=== PATIENT | male | born 1965 | race Caucasian/White ===

== ENCOUNTER → 2024-03-22 | Outpatient (CLI) | payer BC, SELFPAY ==
[2024-03-22 16:22] LABS: Collection Type, Urine Clean Catch; Squamous Epithelial Cell,Urine 0 /hpf (0-5)
[2024-03-22 17:32] LABS: Basophils % (Auto) 0 % (0-2.5); Eosinophils % (Auto) 0 % (0-10); Hematocrit 30.8 % (41.0-53.0); Hemoglobin 10.4 g/dL (13.5-16.0); Immature Granulocytes % (Auto) 0 % (0-0); Immature Granulocytes Auto 0.02 Thou/mm3 (0.00-0.00); Lymphocytes # (Auto) 0.6 Thou/mm3 (1.0-4.8); Lymphocytes % (Auto) 9 % (10-50); Mean Corpuscular HGB Conc 33.8 g/dl (31.0-37.0); Mean Corpuscular Hemoglobin 33.2 pg (25.0-35.0); Mean Corpuscular Volume 98 fL (80-100); Monocytes # (Auto) 0.1 Thou/mm3 (0.0-0.8); Monocytes % (Auto) 2 % (0-12); Neutrophils # (Auto) 5.6 Thou/mm3 (1.8-7.7); Neutrophils % (Auto) 89 % (37-80); Nucleated Red Blood Cell % 0 /100 WBC (0); Platelet Count 274 Thou/mm3 (140-440); RDW Standard Deviation 44.7 fL (35.1-43.9); Red Blood Count 3.13 Miln/mm3 (4.50-5.90); White Blood Count 6.4 Thou/mm3 (3.8-10.6)
[2024-03-22 17:37] LABS: Bilirubin,Urine Negative (Negative); Blood,Urine Negative (Negative); Clarity,Urine Clear (Clear/Hazy); Color,Urine Yellow (Lt Yel-Yel); Glucose, Urine Negative (Negative); Ketones,Urine Negative (Negative); Leukocyte Esterase,Urine Negative (Negative); Nitrite,Urine Negative (Negative); Protein,Urine 1+ (Neg - Trace); RBC,Urine 2 /hpf (0-3); Specific Gravity,Urine 1.014 (1.001-1.035); Urobilinogen,Urine Negative mg/dL (0.0-1.0); WBC,Urine < 1 /hpf (0-5)
[2024-03-22 17:51] LABS: Alanine Aminotransferase 21 U/L (10-49); Albumin, Serum 4.6 gm/dL (3.4-4.8); Albumin/Globulin Ratio 2.2 (1.2-2.2); Alkaline Phosphatase 70 U/L (46-116); Anion Gap 8 (7-16); Aspartate Amino Transferase 12 U/L (0-34); BUN/Creatinine Ratio 12 Ratio (12-20); Bilirubin,Total 0.9 mg/dL (0.3-1.2); Blood Urea Nitrogen 14 mg/dL (9-23); Calcium 8.9 mg/dL (8.3-10.6); Calcium (Corrected) 8.9 mg/dL (8.5-10.1); Carbon Dioxide 23.1 mMol/L (20.0-31.0); Chloride 100 mMol/L (98-107); Creatinine (Component) 1.2 mg/dL (0.6-1.3); Globulin 2.1 gm/dL (2.3-3.5); Glucose 138 mg/dL (74-106); Osmolality,Calculated 265 (275-295); Potassium 4.9 mMol/L (3.4-5.1); Sodium 131 mMol/L (136-145); Total Protein 6.7 gm/dL (5.7-8.2); eGFR > 60 See Note
[2024-03-23 16:31] LABS: Cocci Serology, IgM Negative (Negative)
[2024-03-25 14:20] LABS: Cocci Serology, IgG Negative (Negative)
== END | disposition home or self-care (01) ==
LOC: COPL 15:48
PROVIDERS: PCP Nurse Practitioner Family; Referring Provider Nurse Practitioner Family; Visit Provider Nurse Practitioner Family
DX: Z00.00 Encounter for general adult medical examination without abnormal findings (principal); R05.9 Cough, unspecified; J18.9 Pneumonia, unspecified organism; Z13.0 Encounter for screening for diseases of the blood and blood-forming organs and certain disorders involving the immune mechanism
CPT/HCPCS: 36415; 80053; 81001; 85025; 86331; 86635; 87086

== ENCOUNTER 2024-03-23 18:34 | Inpatient (IN) | payer BC, SELFPAY ==
[2024-03-23 18:35] VITALS: BMI 27.4
--- NOTE | 2024-03-23 18:49 | EKG_ITS ---
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
[2024-03-23 18:54] VITALS: BP 172/68; PULSE 96; RESP 18; TEMP 37.1; O2SAT 91
--- NOTE | 2024-03-23 19:16 | XR_ITS ---
Examination: PA lateral chest 2 views Technique: Upright PA lateral chest 2 views Exam date and time: March 15, 2024 1924 hrs. Indications: Coughing shortness of breath beginning 3 weeks ago. Findings: Pneumonia in the right middle lobe and lingular segment left upper lobe on the lateral view Mild prominence of ventricle No pulmonary edema Mild osteopenia Impression: Pneumonia in the right middle lobe lingular segment left upper lobe
--- NOTE | 2024-03-23 19:18 | EDRME_ITS ---
Rapid Medical Screening Exam FORMERLY [facility], [facility] Arrival date/time: 03/23/24 18:34 59M with history of DM, hypothyroidism, HTN and anxiety presents to ED with several weeks worsening cough, wheezing, and SOB requiring home oxygen, which patient has never required before. Patient denies smoking history. Patient recently finished a course of Levofloxacin w/o relief. Patient had recent labs drawn here with negative Cocci IgM. Chief Complaint: Shortness of Breath/Dyspnea Vital signs: Vital Signs Temperature 98.7 F 03/23/24 18:54 Pulse Rate 96 03/23/24 18:54 Respiratory Rate 18 03/23/24 18:54 Blood Pressure 172/68 H 03/23/24 18:54 Pulse Oximetry (%) 91 L 03/23/24 18:54 Oxygen Delivery Method Nasal Cannula 03/23/24 18:54 Oxygen Flow Rate 3 03/23/24 18:54
[2024-03-23 19:47] VITALS: BP 176/74; RESP 23; O2SAT 90
[2024-03-23 19:50] VITALS: BP 176/74; PULSE 97; RESP 15; TEMP 36.8; O2SAT 91
[2024-03-23 19:50] LABS: Lactate (Lactic Acid) 3.5 mMol/L (0.4-2.0)
--- NOTE | 2024-03-23 19:50 | EDNOTE_ITS ---
ED SOB =RME/HPI General Chief Complaint: Shortness of Breath/Dyspnea Stated Complaint: PNUEMONIA x 2 DAYS, DIFF BREATHING x 7 DAYS Arrival date/time: 03/23/24 18:34 RME / HPI RME / HPI Narrative: 03/23/24 18:34 59M with history of DM, hypothyroidism, HTN and anxiety presents to ED with several weeks worsening cough, wheezing, and SOB requiring home oxygen, which patient has never required before. Patient denies smoking history. Patient recently finished a course of Levofloxacin w/o relief. Patient had recent labs drawn here with negative Cocci IgM. -------- Dr. Mixon?s Main ED Evaluation: 59yo male with pmhx DMI, HTN accompanied by his presents to the ED for a chief complaint of shortness of breath. states the patient has been well for the last 3 weeks after having pneumonia 1 month ago. She states over the last few days, the patient has developed a cough, reporting he coughs so hard he gets short of breath and almost passes out. Patient denies any tobacco use, but does smoke marijuana occasionally. Patient denies any history of COPD or asthma. Denies any fever, chills or any other associated symptoms. No known allergies. Related Data Home Medications ?Medication ?Instructions ?Recorded ?Confirmed insulin lispro 100 unit/mL 64 unit subcut 2XD ##0 08/25/15 subcutaneous cartridge (Humalog U-100 Insulin) lisinopril 20 mg tablet 20 mg PO QDAY #0 tabs 08/25/15 05/16/23 lovastatin 40 mg tablet 40 mg PO HS #0 tabs 08/25/15 05/16/23 amlodipine 5 mg tablet 5 mg PO QDAY 05/16/23 05/16/23 aripiprazole 5 mg tablet 5 mg PO QDAY 05/16/23 05/16/23 buspirone 15 mg tablet 15 mg PO QDAY 05/16/23 05/16/23 cetirizine 10 mg tablet 10 mg PO QDAY 05/16/23 05/16/23 dapsone 25 mg tablet 25 mg PO QDAY 05/16/23 05/16/23 escitalopram oxalate 10 mg tablet 10 mg PO QDAY 05/16/23 05/16/23 insulin aspart U-100 100 unit/mL subcut 05/16/23 (3 mL) subcutaneous pen (Novolog FlexPen U-100 Insulin aspart) levothyroxine 100 mcg tablet 100 mcg PO QDAY 05/16/23 05/16/23 Allergies Allergy/AdvReac Type Severity Reaction Status Date / Time No Known Allergies Allergy Verified 03/23/24 18:36 Review of Systems Review of Systems Systems Reviewed: All systems reviewed, normal except as documented Narrative Review of Systems: Gen: No fever, no chills, no weight loss EYES: No discharge, no visual changes, no pain HEENT: No ear pain, no congestion, no sore throat PULM: + shortness of breath, + cough, no congestion CV: No chest pain, no dyspnea on exertion, no palpitations GI: No nausea, no vomiting, no diarrhea, no pain, no constipation : No frequency, no urgency, no dysuria Musc/skel: No joint pain, no back pain Skin: No rash. Warm and dry. Psyc: No hallucinations, no depression Heme/Lymph: No easy bleeding or bruising tendencies Neuro: No weakness, no headache Past Medical History Past Medical History NEUROLOGIC: Negative Neurological Disorders or Seizures CARDIAC: Positive Cardiac Disorders, Hypercholesterolemia and Hypertension; Negative Congestive Heart Failure RESPIRATORY: Negative Chronic Obstructive Pulmonary Disease (COPD) GASTROINTESTINAL: Negative Gastrointestinal Disorders GENITOURINARY: Negative Genitourinary Disorders or Renal Disease MUSCULOSKELETAL: Negative Musculoskeletal Disorders ENT: Positive Blind (legally blind) ENDOCRINE: Positive Endocrine Disorders and Diabetes Mellitus Type 1; Negative Diabetes Mellitus Type 2 HEMATOLOGIC: Negative Blood Disorders PSYCHO/SOCIAL: Positive Depression, Anxiety and Post Traumatic Stress Disorder OTHER HISTORY: Negative Hospitalization, Falls, Blood Transfusions, Anesthesia Reactions (woke up during hands sx) or Cancer Surgical History SURGICAL: Positive Neurologic Surgery (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 HEENT: Normocephalic, atraumatic; pupils equal, round, reactive to light; EOMI; mucous membranes pink, moist; oropharynx clear NECK: Supple LUNGS: tachypneic, diffuse generalized significant wheezes throughout, coarse breath sounds in all lungs otriz, no rales, no rhonchi HEART: Tachycardic in the 110s, regular rhythm; normal S1, S2; no murmurs ABDOMEN: non distended; normal BS; soft, no tenderness, no guarding, no rebound; no masses, no organomegaly, no hernia BACK: no CVA tenderness EXTREMITIES: atraumatic; no edema NEUROLOGIC: awake; alert and oriented x4; cranial nerves II-XII grossly intact; no focal sensory or motor deficits PSYCHIATRIC: appropriate mood and affect SKIN: warm, dry, normal color; no rashes Course Course Course Narrative: CXR is ordered for determining the etiology of shortness of breath. 2001: Sepsis alert initiated. Orders made at this time are congruent with ED Adult Sepsis Order List. Re-evaluation is to be completed. 2140: NS IVF infused. 2210: Sepsis reassessment performed consisting of lab review, vitals, physical exam including auscultation of heart, lungs, and visual evaluation of capillary refills, mucosal membranes and extremities. Quality Measures Possible source: unknown Blood cultures ordered: yes Antibiotic ordered: Yes Pertinent labs: 03/23/24 19:25 Lactic Acid 3.5 H mMol/L (0.4-2.0) Procalcitonin 0.06 ng/ml (0.0-0.49) sepsis Orders Category Date Time Status Bedside COVID-19 Antigen Test NOW Care 03/23/24 19:24 Active Bedside Influenza A&B Antigen Test NOW Care 03/23/24 19:24 Completed EKG (ED ONLY) *Do not use* NOW Care 03/23/24 18:49 Completed Insert IV NOW Care 03/23/24 19:17 Active EKG (ED Only) Stat Exams 03/23/24 18:49 Draft XR chest 2V Stat Exams 03/23/24 19:16 Completed ABG [Arterial Blood Gas] Routine Lab 03/23/24 20:16 Completed B-Type Natriuretic Peptide Stat Lab 03/23/24 19:25 Completed Blood Culture (Lab) Stat Lab 03/23/24 19:25 Received CBC Stat Lab 03/23/24 19:25 Completed Comprehensive Metabolic Panel Stat Lab 03/23/24 19:25 Completed Lactate (Lactic Acid) Stat Lab 03/23/24 19:25 Results Magnesium Stat Lab 03/23/24 19:25 Completed Procalcitonin Stat Lab 03/23/24 19:25 Completed Troponin I Stat Lab 03/23/24 19:25 Completed UA, C/S IF [Urinalysis, C/S if Indicated] Stat Lab 03/23/24 21:55 Ordered Azithromycin Inj [Zithromax Inj] 500 mg Med 03/23/24 20:05 Discontinued Sodium Chloride 0.9% 250 ml [Ns] 250 ml IV X1 Budesonide Rt [Pulmicort Rt Anabel] Med 03/23/24 19:15 Discontinued 0.5 mg INH X1 ONE Ipratropium [place] Rt Anabel [Atrovent Rt Anabel] Med 03/23/24 19:15 Discontinued 1 mg INH X1 ONE Levalbuterol Rt [Xopenex Rt Anabel] Med 03/23/24 19:15 Discontinued 5 mg INH X1 ONE MethylPREDNISolone.* [SoluMEDROL Inj] Med 03/23/24 19:15 Discontinued 125 mg IVP X1 ONE MethylPREDNISolone.* [SoluMEDROL Inj] Med 03/23/24 20:08 Discontinued 125 mg IVP X1 ONE Sodium Chloride 0.9% 1000 ml [Ns] 1,000 ml Med 03/23/24 20:04 Discontinued IV 999 mls/hr Sodium Chloride Rt Anabel 0.9% [NS Rt Anabel 0.9%] Med 03/23/24 19:15 Active 3 ml INH PRN PRN cefTRIAXone/D5w 1gm IV premix [Rocephin/D5w 1gm IV Med 03/23/24 20:05 Discontinued premix] 50 ml IV X1 Oxygen Delivery NOW RT 03/23/24 19:17 Active Vital Signs Vital signs: Vital Signs Temperature 98.7 F 03/23/24 18:54 Pulse Rate 96 03/23/24 18:54 Respiratory Rate 18 03/23/24 18:54 Blood Pressure 172/68 H 03/23/24 18:54 Pulse Oximetry (%) 91 L 03/23/24 18:54 Oxygen Delivery Method Nasal Cannula 03/23/24 18:54 Oxygen Flow Rate 3 03/23/24 18:54 Shortness of Breath / Dyspnea MDM Narrative MDM Narrative:: Scribe Attestation: 03/23/24 - Nori Manzano am scribing for and in the presence of Dr. Mixon. Patient data External records reviewed:: [facility] previous records (Per chart review, patient was seen here on 12/26/20 for dehydration.) Clinical information provided by:: patient Social determinants that could affect healthcare access:: substance use (smokes marijuana) Patient has the following chronic illnesses:: HTN, HLD How is presenting disease/condition affected by chronic disease/condition?: uneffected by Evaluation data The following diagnostics were reviewed and interpreted by me:: lab results, radiology exam(s) and EKG tracing(s) Lab and/or radiology exams considered but not ordered:: none Interpretation Summary: WBC count is normal, Lactic Acid is elevated at 3.5, Sodium is slightly low at 132, Potassium is elevated at 5.7, Glucose is elevated at 426, troponin is normal, BNP is normal, Procalcitonin is normal, Bedside COVID and Influenza are negative, according to my interpretation. EKG ----- [facility] Report Signed Patient: KATALINA PHILLIP. Record#: [id number] Birthdate: 1965 Age/Sex: 59 / M Location: [facility] Attending Dr: Ordering Physician: Giovany Crespo PA-C Date of Service: 03/23/24 Procedure(s): XR chest 2V Accession Number(s): [id number] cc: Tony Mejia MD; Jorge Luis Mortensen MD; Giovany Crespo PA-C~ Examination: PA lateral chest 2 views Technique: Upright PA lateral chest 2 views Exam date and time: March 15, 2024 1924 hrs. Indications: Coughing shortness of breath beginning 3 weeks ago. Findings: Pneumonia in the right middle lobe and lingular segment left upper lobe on the lateral view Mild prominence of ventricle No pulmonary edema Mild osteopenia Impression: Pneumonia in the right middle lobe lingular segment left upper lobe Dictated By: Tony Mejia MD Signed By: <Electronically signed by Tony Mejia MD in OV> 03/23/242038 Medications / Prescriptions Medications or Prescriptions considered but not ordered:: none Medication administrations:: Medication Administration History Sodium Chloride (Sodium Chloride Rt Anabel 0.9% 3 Ml Nebu) 3 ml INH PRN PRN PRN Reason: SOLN Stop: 04/22/24 19:14 Discontinued Medications Budesonide (Budesonide Rt 0.5 Mg/2 Ml Nebu) 0.5 mg INH X1 ONE Stop: 03/23/24 19:16 Last Admin: 03/23/24 20:00 Dose: 0.5 mg Documented By: SC Sodium Chloride (Ns) 1,000 mls @ 999 mls/hr IV .Q1H1M ONE Stop: 03/23/24 21:04 Last Infusion: 03/23/24 21:41 Dose: Infused Documented By: Admin: 03/23/24 20:18 Dose: 999 mls/hr Documented By: SF Ceftriaxone Sodium/Dextrose (Rocephin/D5w 1gm Iv Premix) 50 mls @ 100 mls/hr IV X1 ONE Stop: 03/23/24 20:34 Last Infusion: 03/23/24 21:41 Dose: Infused Documented By: Admin: 03/23/24 20:22 Dose: 100 mls/hr Documented By: SF Azithromycin 500 mg/ Sodium (Chloride) 250 mls @ 250 mls/hr IV X1 ONE Stop: 03/23/24 21:04 Last Admin: 03/23/24 20:33 Dose: 250 mls/hr Documented By: SF Ipratropium D[place]anelle (Ipratropium Rt 0.5 Mg/ 2.5 Ml Nebu) 1 mg INH X1 ONE Stop: 03/23/24 19:16 Last Admin: 03/23/24 20:00 Dose: 1 mg Documented By: SC Levalbuterol HCl (Levalbuterol Rt 1.25 Mg/0.5 Ml Nebu) 5 mg INH X1 ONE Stop: 03/23/24 19:16 Last Admin: 03/23/24 20:00 Dose: 5 mg Documented By: SC Methylprednisolone Sodium Succinate (Methylprednisolone Sod Succ 62.5 Mg/Ml 2ml Vial) 125 mg IVP X1 ONE Stop: 03/23/24 19:16 Last Admin: 03/23/24 19:56 Dose: 125 mg Documented By: CB Methylprednisolone Sodium Succinate (Methylprednisolone Sod Succ 62.5 Mg/Ml 2ml Vial) 125 mg IVP X1 ONE Stop: 03/23/24 20:09 Last Admin: 03/23/24 20:22 Dose: 125 mg Documented By: SF see above Consultations Consultation(s) initiated? (list below): Yes Consultation #1 (Physician, Specialty, Details): Discussed case with [attending Dr. Zhou] from Hospitalist service regarding admission. Discussed patients ED course, exam findings, labs, and radiology results. The Hospitalist [agrees] to accept the patient for admission. Time: 22:13 Diagnosis Shortness of Breath Differential Diagnosis: congestive heart failure, community acquired pneumonia and pulmonary embolism Most likely diagnosis given after review of the tests above:: see below Admission Indicated Admission indicated?: indicated Admission Request Was there a request for admission?: Yes Admission Attestation Admission request attestation: Discussed case with [] from Hospitalist service regarding admission. Discussed patients ED course, exam findings, labs, and radiology results. The Hospitalist [agrees,declines] to accept the patient for admission. Disposition Plan Disposition Plan: Admit Critical Care Time Critical Care Time Critical Care Time: Yes Total Critical Care Time (min.): 45 Attestation: The high probability of sudden, clinically significant deterioration in the patient?s condition required the highest level of my preparedness to intervene urgently. The services I provided to this patient were to treat and/or prevent clinically significant deterioration. Services included the following: chart data review, reviewing nursing notes and/or old charts, documentation time, seph[employer] product consultant collaboration regarding findings and treatment options, medication orders and management, direct patient care, vital sign assessments and ordering, interpreting and reviewing diagnostic studies and lab tests. Aggregate critical care time includes only time during which I was engaged in work directly related to the patient?s care, as described above, whether at bedside or elsewhere in the Emergency Department. It did not include time spent performing other reported procedures or the services of residents, students, nurses or physician assistants. Discharge Plan Plan Patient Disposition: Admit Acute Care w/in Hospital Prescriptions/Referrals Prescriptions/Med Rec: No Action Humalog U-100 Insulin 100 U/ML cartridge 64 unit subcut 2XD Qty: 0 lisinopril 20 MG tablet 20 mg PO QDAY Qty: 0 lovastatin 40 MG tablet 40 mg PO HS Qty: 0 cetirizine 10 mg Tablet 10 mg PO QDAY amlodipine 5 mg tablet 5 mg PO QDAY levothyroxine 100 mcg tablet 100 mcg PO QDAY Patient Comments: take 1 tablet by mouth once daily dapsone 25 mg tablet 25 mg PO QDAY Patient Comments: take 2 tablets by mouth once daily buspirone 15 mg tablet 15 mg PO QDAY escitalopram oxalate 10 mg tablet 10 mg PO QDAY Patient Comments: take 1 tablet by mouth once daily aripiprazole 5 mg tablet 5 mg PO QDAY insulin aspart U-100 [Novolog FlexPen U-100 Insulin] 100 unit/mL (3 mL) insulin pen SUBCUT Referrals: Festus (PCP),MD Jorge Luis [Primary Care Provider] - In 1 week Problem List Clinical Impression: Pneumonia, Severe sepsis, Hypoxia, Hyperglycemia Patient/Caregiver Discharge Instructions Print Language: Ukrainian Stand Alone Forms: Radha Award Info., Patient Portal Info Letter
[2024-03-23 19:51] LABS: Basophils % (Auto) 0 % (0-2.5); Eosinophils % (Auto) 0 % (0-10); Hemoglobin 10.9 g/dL (13.5-16.0); Immature Granulocytes % (Auto) 1 % (0-0); Immature Granulocytes Auto 0.07 Thou/mm3 (0.00-0.00); Lymphocytes % (Auto) 10 % (10-50); Mean Corpuscular HGB Conc 34.1 g/dl (31.0-37.0); Mean Corpuscular Hemoglobin 33.5 pg (25.0-35.0); Mean Corpuscular Volume 99 fL (80-100); Monocytes # (Auto) 0.7 Thou/mm3 (0.0-0.8); Monocytes % (Auto) 7 % (0-12); Neutrophils # (Auto) 8.6 Thou/mm3 (1.8-7.7); Neutrophils % (Auto) 83 % (37-80); Nucleated Red Blood Cell % 0 /100 WBC (0); Platelet Count 304 Thou/mm3 (140-440); RDW Standard Deviation 45.7 fL (35.1-43.9); Red Blood Count 3.25 Miln/mm3 (4.50-5.90); White Blood Count 10.4 Thou/mm3 (3.8-10.6)
[2024-03-23 19:56] VITALS: PULSE 91; RESP 16; O2SAT 92
[2024-03-23] MEDS: MethylPREDNISolone SOD SUCC 62.5 MG/ML 2ML VIAL 125 MG IVP ×2 (19:56→20:22)
[2024-03-23 20:00] VITALS: PULSE 98; RESP 22; RESP 33; O2SAT 88; O2SAT 99
[2024-03-23] MEDS: LEVALBUTEROL RT 1.25 MG/0.5 ML NEBU 5 MG INH (20:00)
[2024-03-23] MEDS: IPRATROPIUM RT 0.5 MG/ 2.5 ML NEBU 1 MG INH (20:00)
[2024-03-23] MEDS: BUDESONIDE RT 0.5 MG/2 ML NEBU INH (20:00)
[2024-03-23] MEDS: SODIUM CHLORIDE 0.9% 1000 ML 1,000 ML 999 ML IV (20:18)
[2024-03-23 20:19] LABS: B-Type Natriuretic Peptide < 20 pg/mL (0-100)
[2024-03-23 20:20] LABS: Allen Test Performed/OK; Base Excess 1 (-3-3); HCO3 24 mEq/L (20-26); Inspired O2, VO2 Liters 15 L/min; Inspired Oxygen, FIO2 21 %; O2 Saturation 85 % (91-98); PCO2 35 mmHg (32.0-48.0); Puncture Site Right Radial; pH, Arterial 7.45 (7.35-7.45)
[2024-03-23 20:21] LABS: PO2 52 mmHg (83-108)
[2024-03-23] MEDS: cefTRIAXone/D5w 1gm IV premix 50 ML IV (20:22)
[2024-03-23 20:23] LABS: Alanine Aminotransferase 25 U/L (10-49); Albumin, Serum 4.5 gm/dL (3.4-4.8); Alkaline Phosphatase 114 U/L (46-116); Anion Gap 8 (7-16); Aspartate Amino Transferase 31 U/L (0-34); BUN/Creatinine Ratio 15 Ratio (12-20); Bilirubin,Total 0.9 mg/dL (0.3-1.2); Blood Urea Nitrogen 21 mg/dL (9-23); Calcium 9.7 mg/dL (8.3-10.6); Calcium (Corrected) 9.7 mg/dL (8.5-10.1); Carbon Dioxide 25.6 mMol/L (20.0-31.0); Chloride 98 mMol/L (98-107); Creatinine (Component) 1.4 mg/dL (0.6-1.3); Estimated Creatinine Clearance 54.2 mL/min (>60); Globulin 2.2 gm/dL (2.3-3.5); Glucose 426 mg/dL (74-106); Magnesium 2.2 mg/dL (1.6-2.6); Osmolality,Calculated 285 (275-295); Potassium 5.7 mMol/L (3.4-5.1); Sodium 132 mMol/L (136-145); Total Protein 6.7 gm/dL (5.7-8.2); Troponin I < 0.020 ng/mL (0.0-0.045); eGFR 57 See Note
[2024-03-23 20:26] LABS: Procalcitonin 0.06 ng/ml (0.0-0.49)
[2024-03-23] MEDS: AZITHROMYCIN INJ 500 MG in SODIUM CHLORIDE 0.9% 250 ML 250 ML 250 MG IV (20:33)
[2024-03-23 22:48] LABS: Reflex Lactate? Y
--- NOTE | 2024-03-23 22:50 | XR_ITS ---
Examination: CTA chest with intravenous contrast 2-D reconstructions 3-D reconstructions, vascular Date and time of exam: March 24, 2024 0432 hrs. Indications: Onset chest pain shortness of breath beginning 7 days ago, history pneumonia in the right middle lobe and lingular segment left upper lobe on chest x-ray March 15, 2024 CTDI: vol (mGy) 9.18 DLP: (mGycm) 370 Technique: Multiple axial sections of the thorax have been obtained. 3 mm slice thickness, from below the hemidiaphragms to above the apices of the lungs. Mediastinal and lung density settings have been obtained. 2-D sagittal and coronal reconstructions. 3-D angiographic renderings, 3-D volume renderings, 3D post processing, vascular maximum intensity projections obtained. Contrast administered is 60 cc Isovue-300 intravenous. Low dose protocols were performed. One or more of the following dose reduction techniques were used; automated exposure control, adjustment of the mA and/or KV according to patient size, use of iterative reconstruction technique. Findings: No thoracic aortic aneurysm dilatation Pulmonary artery segments are not enlarged No pulmonary artery emboli Pulmonary opacities in the right middle lobe lingular segment and both bases consistent with pneumonia No visualized liver or splenic lesion Contracted gallbladder No pancreatic or adrenal mass 1 mm left renal calculus Perinephric stranding Impression: Negative for pulmonary artery emboli Parenchymal opacities in the right middle lobe, lingular segment left upper lobe and both bases consistent with pneumonia
[2024-03-23 22:51] LABS: Collection Type, Urine Clean Catch; Squamous Epithelial Cell,Urine 0 /hpf (0-5)
[2024-03-23 22:56] LABS: Bilirubin,Urine Negative (Negative); Blood,Urine Negative (Negative); Clarity,Urine Clear (Clear/Hazy); Color,Urine Lt-Yellow (Lt Yel-Yel); Culture Indicated,Urine Not Indicated; Glucose, Urine 4+ (Negative); Ketones,Urine Trace (Negative); Leukocyte Esterase,Urine Negative (Negative); Nitrite,Urine Negative (Negative); Protein,Urine Negative (Neg - Trace); RBC,Urine 2 /hpf (0-3); Specific Gravity,Urine 1.021 (1.001-1.035); Urobilinogen,Urine Negative mg/dL (0.0-1.0); WBC,Urine < 1 /hpf (0-5)
--- NOTE | 2024-03-23 23:00 | PD.RESHP ---
Documentation for date of: 03/23/24 [facility] History of Present Illness Chief complaint: Shortness of breath History of present illness: 59-year-old male with past medical history of type 1 diabetes on insulin, hypertension, hyperlipidemia, psychiatric history/BRIGETTE/MDD, presented to the ED on 03/23 with acute shortness of breath along with episode of syncope. History taken with patient's bedside. Per patient, he has been having shortness of breath for the past 9 days and states that his granddaughter who lives with him has been sick with cough/runny nose. Of note, patient had pneumonia 4 weeks ago and was seen by his PCP; chest x-ray was taken at that time and he was discharged with 14-day course of oral antibiotics. Patient states that he recovered for 3 weeks; however, for the past 9 days he has been experiencing worsening shortness of breath and coughing spells. Patient's states that today while having a coughing spell patient developed a couple second syncopal episode where he slouched while sitting on the couch and lost consciousness. Patient denies hitting his head anywhere or having any concerning cardiac symptoms such as chest pain/tightness, palpitations, orthopnea, PND, lower extremity swelling. Patient is seen by Dr. Pena and has had extensive cardiac workup without any pertinent findings. Patient is also interestingly on dapsone 25 mg for an apparent eruptive rash which developed years ago but there was no diagnosis; patient was seen by dermatology who did a punch biopsy with no diagnosis, he was started on dapsone which apparently subsided the rash. Patient denies any travel out of the country, long drives out of town, hiking in the mountains or gardening. 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 Medical history: As stated above Surgical history: Lap roxann, right and left hand surgery Allergies: NKDA Medications: Pending med rec; however patient states that he takes dapsone 25 mg p.o. daily, Abilify 15 mg p.o. daily, escitalopram 20 mg p.o. 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 Pertinent lab findings included fingerstick blood glucose of 423, WBC 10.4, hemoglobin 10.9 with MCV of 99, ABG shows pH 7.45, pCO2 35, pO2 52, bicarb 24, potassium 5.7, creatinine 1.4, BUN 21, glucose 426, lactic acid 3.5, BNP less than 20, troponin less than 0.020. Urinalysis negative for any urinary tract infection. EKG shows sinus rhythm and chest x-ray shows right middle lobe and left lower lobe pneumonia. Patient will be admitted for acute hypoxic respiratory failure secondary to bilateral pneumonia versus possible PE or other infectious cause; will be started on IV antibiotics, breathing treatments and further workup. Exam Vital Signs Temp Pulse Resp BP Pulse Ox O2 Del Method O2 Flow Rate 98.3 F 98 22 H 176/74 H 88 L Nasal Cannula 4 03/23/24 19:50 03/23/24 20:00 03/23/24 20:00 03/23/24 19:50 03/23/24 20:00 03/23/24 19:50 03/23/24 20:00 Narrative Exam Physical Exam: GENERAL: Awake, answering questions appropriately, appears stated age, On 4L NC HEENT: NC/AT. Moist mucosa. PERRLA/EOMI. CARDIO: Heart RRR, no obvious murmurs, no JVD. PULM: Prominent wheezing noted bilaterally upper lung ortiz, no crackles/rales/rhonci noted GI: Abdomen soft, NT/ND, +BS. SKIN/MSK/EXT: No wounds/discoloration/rashes/edema/amputations. +Pedal pulses present B/L. NEURO: Oriented x3, gate operator strength 5/5, cogwheel rigidity noted on upper extremities, Moves extremities x4. Results: Labs 03/23/24 19:25 03/23/24 19:25 Labs: Short CBC 03/23/24 Range/Units 19:25 WBC 10.4 D (3.8-10.6) Thou/mm3 Hgb 10.9 L (13.5-16.0) g/dL Hct 32.0 L (41.0-53.0) % Plt Count 304 D (140-440) Thou/mm3 BMP 03/23/24 19:25 Sodium 132 L Potassium 5.7 H D Chloride 98 Carbon Dioxide 25.6 BUN 21 Creatinine 1.4 H Glucose 426 H* D Calcium 9.7 Cardiac Enzymes 03/23/24 Range/Units 19:25 Troponin I < 0.020 (0.0-0.045) ng/mL Liver Function 03/23/24 Range/Units 19:25 Total Bilirubin 0.9 (0.3-1.2) mg/dL AST 31 (0-34) U/L ALT 25 (10-49) U/L Alkaline Phosphatase 114 D (46-116) U/L Albumin 4.5 (3.4-4.8) gm/dL ABG Interpretation ABG results: 03/23/24 20:16 ABG pH 7.45 ABG pCO2 35 ABG pO2 52 L* ABG HCO3 24 ABG O2 Saturation 85 L ABG Base Excess 1 Quality Measures Quality Measures sepsis Current suspected stage: ruled out Possible source: unknown Blood cultures ordered: yes Antibiotic ordered: Yes Medications Home Medications and Allergies Home Medications ?Medication ?Instructions ?Recorded ?Confirmed ?Type insulin lispro 100 unit/mL 64 unit subcut 2XD ##0 08/25/15 History subcutaneous cartridge (Humalog U-100 Insulin) lisinopril 20 mg tablet 20 mg PO QDAY #0 tabs 08/25/15 05/16/23 History lovastatin 40 mg tablet 40 mg PO HS #0 tabs 08/25/15 05/16/23 History amlodipine 5 mg tablet 5 mg PO QDAY 05/16/23 05/16/23 History aripiprazole 5 mg tablet 5 mg PO QDAY 05/16/23 05/16/23 History buspirone 15 mg tablet 15 mg PO QDAY 05/16/23 05/16/23 History cetirizine 10 mg tablet 10 mg PO QDAY 05/16/23 05/16/23 History dapsone 25 mg tablet 25 mg PO QDAY 05/16/23 05/16/23 History escitalopram oxalate 10 mg tablet 10 mg PO QDAY 05/16/23 05/16/23 History insulin aspart U-100 100 unit/mL subcut 05/16/23 History (3 mL) subcutaneous pen (Novolog FlexPen U-100 Insulin aspart) levothyroxine 100 mcg tablet 100 mcg PO QDAY 05/16/23 05/16/23 History Allergies Allergy/AdvReac Type Severity Reaction Status Date / Time No Known Allergies Allergy Verified 03/23/24 18:36 Visit Medications Acetaminophen (Acetaminophen 325 Mg Tablet) 650 mg PO Q6H PRN PRN Reason: Pain 1-3 and/or Fever >100.1 Stop: 04/22/24 22:49 Azithromycin (Azithromycin 250 Mg Tablet) 250 mg PO QDAY [facility] Stop: 03/28/24 08:59 Dextrose (Dextrose 50%-Water Inj 50 Ml Syringe) 25 ml IV Q15MIN PRN PRN Reason: BG 50-70 responsive npo pt Stop: 04/22/24 22:53 Dextrose (Dextrose 50%-Water Inj 50 Ml Syringe) 50 ml IV Q15MIN PRN PRN Reason: BG <50 OR BG <70 & pt unresponsive Stop: 04/22/24 22:53 Glucagon (Glucagon Inj 1 Mg Vial) 1 mg IM Q15MIN PRN PRN Reason: BG <70, and no IV access Heparin Sodium (Porcine) (Heparin Sod Inj 5000 Unit/Ml Vial) 5,000 unit SC Q12HR [facility] Stop: 04/07/24 08:59 Ceftriaxone Sodium/Dextrose (Rocephin/D5w 1gm Iv Premix) 50 mls @ 100 mls/hr IV QDAY [facility] Stop: 03/31/24 08:59 Insulin Human Lispro (Insulin Lispro (Admelog) 1 Unit/0.01 Ml Unit) 0 unit SC [facility]; Protocol Stop: 04/23/24 07:29 Levalbuterol HCl (Levalbuterol Rt 0.63 Mg/3 Ml Nebu) 0.63 mg INH Q8HR PRN PRN Reason: WHEEZING Stop: 04/22/24 22:54 Ondansetron HCl (Ondansetron Inj 2 Mg/Ml Inj 2 Ml) 4 mg IV Q6H PRN; Protocol PRN Reason: NAUSEA OR VOMITING Stop: 04/22/24 22:49 Sennosides (Senna Tablet) 1 tab PO QDAY [facility]; Protocol Stop: 04/23/24 08:59 Sodium Chloride (Sodium Chloride Rt Anabel 0.9% 3 Ml Nebu) 3 ml INH PRN PRN PRN Reason: SOLN Stop: 04/22/24 19:14 Discontinued Medications Budesonide (Budesonide Rt 0.5 Mg/2 Ml Nebu) 0.5 mg INH X1 ONE Stop: 03/23/24 19:16 Last Admin: 03/23/24 20:00 Dose: 0.5 mg Sodium Chloride (Ns) 1,000 mls @ 999 mls/hr IV .Q1H1M ONE Stop: 03/23/24 21:04 Last Infusion: 03/23/24 21:41 Dose: Infused Ceftriaxone Sodium/Dextrose (Rocephin/D5w 1gm Iv Premix) 50 mls @ 100 mls/hr IV X1 ONE Stop: 03/23/24 20:34 Last Infusion: 03/23/24 21:41 Dose: Infused Azithromycin 500 mg/ Sodium (Chloride) 250 mls @ 250 mls/hr IV X1 ONE Stop: 03/23/24 21:04 Last Infusion: 03/23/24 22:22 Dose: Infused Insulin Glargine (Insulin Glargine (Lantus) 5 Unit/0.05 Ml (Per 5 Units)) 20 unit SC X1 ONE Stop: 03/23/24 22:55 Ipratropium [place] (Ipratropium Rt 0.5 Mg/ 2.5 Ml Nebu) 1 mg INH X1 ONE Stop: 03/23/24 19:16 Last Admin: 03/23/24 20:00 Dose: 1 mg Levalbuterol HCl (Levalbuterol Rt 1.25 Mg/0.5 Ml Nebu) 5 mg INH X1 ONE Stop: 03/23/24 19:16 Last Admin: 03/23/24 20:00 Dose: 5 mg Methylprednisolone Sodium Succinate (Methylprednisolone Sod Succ 62.5 Mg/Ml 2ml Vial) 125 mg IVP X1 ONE Stop: 03/23/24 19:16 Last Admin: 03/23/24 19:56 Dose: 125 mg Methylprednisolone Sodium Succinate (Methylprednisolone Sod Succ 62.5 Mg/Ml 2ml Vial) 125 mg IVP X1 ONE Stop: 03/23/24 20:09 Last Admin: 03/23/24 20:22 Dose: 125 mg Sodium Chloride (Sodium Chloride Rt 10% 15 Ml Nebu) 5 ml INH X1 ONE Stop: 03/23/24 22:56 Assessment & Plan Plan 59-year-old male with past medical history of type 1 diabetes on insulin, hypertension, hyperlipidemia, psychiatric history/BRIGETTE/MDD, presented with acute shortness of breath along with episode of syncope after the 500 his blood pressure still 86 oh systolic will be admitted for acute hypoxic respiratory failure secondary to bilateral pneumonia versus possible PE or other infectious cause; will be started on IV antibiotics, breathing treatments and further workup. #Acute hypoxic respiratory failure #Bilateral pneumonia #Possible PE Presenting from home with worsening shortness of breath for the past 9 days; he has a sick contact his grandchild and runny nose/cough Of note, patient was treated for pneumonia about 4 weeks ago with oral antibiotic regimen and apparently was better until 9 days ago Patient also has associated coughing spells which have triggered a syncopal episode which was witnessed by his Patient denies having any fever/chills or any concerning cardiac symptoms such as chest pain/tightness, palpitations In the ED, patient presented acutely hypoxemic requiring 3-4 L of oxygen supplementation with nasal cannula WBC 10.4, lactic acid elevated at 3.2, Pro-[place] 0.06 ABG done showed PaO2 of 52 but a pH of 7.45, pCO2 35 and bicarb of 24 Chest x-ray showed bilateral pneumonia right middle lobe along with left lower lobe Given x 1 azithromycin and ceftriaxone, methylprednisolone x 2 along with breathing treatments in the ED Well score of 4.5: patient denies having any recent surgeries, history of cancer, recent immobilization; however, patient has tachycardia with hypoxemia and chest x-ray is not very conclusive of a pneumonia Plan: CT angio of chest (patient given IV fluid bolus to prevent contrast-induced nephropathy) IV ceftriaxone and azithromycin Breathing treatments, Xopenex every 8 hours for wheezing Sputum culture, blood culture RSV, urine Legionella, cocci ordered #Vasovagal syncope Patient's states that she witnessed the patient having a coughing spell after which he lost consciousness while sitting on the sofa Patient has had a previous episode about 4 years ago with similar shortness of breath/cough which led to syncope Plan: Monitor Consider orthostatic vitals if the patient has any new symptoms of dizziness/presyncope #Insulin-dependent type 1 diabetes mellitus Patient diagnosed with type 1 diabetes since the age of 5, has been on insulin since Patient states that recently her insulin regimen was changed since his A1c has been in the low fives Presented with glucose in the 400s Patient takes 40 units of Lantus at bedtime along with Premeal sliding scale Given IV Lantus 20 x 1 and IV regular insulin 5 x 1 Plan: Sliding scale insulin Carb consistent low diet Bedside blood glucose ACHS #Normocytic anemia Patient has mild normocytic anemia, borderline macrocytic Likely secondary to iron deficiency anemia versus anemia of chronic disease versus B12/B9 deficiency Plan: Follow-up with iron panel, ferritin Follow-up with B12 and RBC folate #LETICIA #Electrolyte abnormalities #Hyperkalemia Patient presenting to the ED with new and worsening LETICIA as seen from increase in creatinine from baseline Patient's baseline creatinine around 1.0, currently 1.4 Patient also has hyperkalemia 5.7 Likely secondary to acutely ill status versus underlying diabetic nephropathy No concerning EKG changes noted Plan: IV fluid resuscitation as above Kayexalate 15 mg x 1 for hyperkalemia along with the breathing treatments outlined above #Hypertension Patient has longstanding hypertension on lisinopril and amlodipine Plan: Held lisinopril since the patient also has LETICIA Amlodipine home dose restarted #Generalized anxiety disorder/Depression Patient has extensive history of psychiatric disorders On home Abilify, escitalopram and BuSpar Plan: Restarted home medications #Hypothyroidism Patient on 100 mcg of levothyroxine for longstanding hypothyroidism Plan: Restarted home medication Hospital Management: Lines: PIV Diet: Carb consistent low Bowel: Senna GI prophylaxis: Not needed DVT prophylaxis: Heparin subcu Dispo: Workup for acute hypoxic respiratory failure secondary to likely bilateral pneumonia, on IV antibiotics and breathing treatments Code: Full Patient seen and assessed with attending Dr. Juanito Gomez, PGY-1 Attending Provider Attestation/Addendum 59-year-old male patient with diabetes mellitus and hypertension was examined in room 278. He presented with possible syncopal episode. He was noted to be hyperkalemic. He is hypoxic in the ER. He CT scan showed pneumonia. CT angio chest was requested by housestaff still pending results. He received antibiotic treatment. He will be admitted for further workup and management. Past medical history is also significant for generalized anxiety disorder, depression, hypothyroidism.
[2024-03-23] MEDS: INSULIN GLARGINE (Lantus) 5 UNIT/0.05 ML (PER 5 UNITS) 20 UNIT SC (23:11)
[2024-03-23] MEDS: SOD POLYSTYRENE SULFON SUSP 15 GM/60 ML BTL PO (23:19)
[2024-03-23 23:25] LABS: Lactic Acid, 3 HR 3.2 mMol/L (0.4-2.0)
[2024-03-23 23:29] VITALS: BP 158/60; PULSE 98; RESP 24; O2SAT 89
[2024-03-24] VITALS (14 sets, daily range): BP systolic 124–148; BP diastolic 59–72; PULSE 80–101; RESP 10–24; TEMP 36.1–36.9; O2SAT 90–96; BMI 27.6
[2024-03-24] MEDS: INSULIN HUM REGULAR 1 UNIT/0.01 ML (PER UNIT) 5 UNIT IV (00:20)
[2024-03-24] MEDS: INSULIN HUM REGULAR 1 UNIT/0.01 ML (PER UNIT) 10 UNIT IV (00:57)
[2024-03-24 00:58] LABS: Respiratory Syncytial Virus Ag Negative (Negative)
[2024-03-24] MEDS: BusPIRone HCL 5 MG TABLET 15 MG PO ×3 (05:13→21:10)
[2024-03-24] MEDS: LEVOTHYROXINE SODIUM 100 MCG TABLET PO (05:13)
[2024-03-24 05:57] LABS: Basophils % (Auto) 0 % (0-2.5); Eosinophils % (Auto) 0 % (0-10); Hematocrit 28.4 % (41.0-53.0); Hemoglobin 9.6 g/dL (13.5-16.0); Immature Granulocytes % (Auto) 1 % (0-0); Immature Granulocytes Auto 0.07 Thou/mm3 (0.00-0.00); Lymphocytes # (Auto) 0.5 Thou/mm3 (1.0-4.8); Lymphocytes % (Auto) 5 % (10-50); Mean Corpuscular HGB Conc 33.8 g/dl (31.0-37.0); Mean Corpuscular Hemoglobin 33.9 pg (25.0-35.0); Mean Corpuscular Volume 100 fL (80-100); Monocytes # (Auto) 0.2 Thou/mm3 (0.0-0.8); Monocytes % (Auto) 2 % (0-12); Neutrophils # (Auto) 8.3 Thou/mm3 (1.8-7.7); Neutrophils % (Auto) 92 % (37-80); Nucleated Red Blood Cell % 0 /100 WBC (0); Platelet Count 285 Thou/mm3 (140-440); RDW Standard Deviation 46.6 fL (35.1-43.9); Red Blood Count 2.83 Miln/mm3 (4.50-5.90)
[2024-03-24 06:06] LABS: Prothrombin Time 11.1 Seconds (9.0-12.2)
[2024-03-24 06:21] LABS: Alanine Aminotransferase 19 U/L (10-49); Albumin, Serum 4.4 gm/dL (3.4-4.8); Albumin/Globulin Ratio 2.2 (1.2-2.2); Alkaline Phosphatase 102 U/L (46-116); Anion Gap 8 (7-16); Aspartate Amino Transferase 18 U/L (0-34); BUN/Creatinine Ratio 18 Ratio (12-20); Bilirubin,Total 0.8 mg/dL (0.3-1.2); Blood Urea Nitrogen 21 mg/dL (9-23); Calcium 8.8 mg/dL (8.3-10.6); Calcium (Corrected) 8.8 mg/dL (8.5-10.1); Carbon Dioxide 23.3 mMol/L (20.0-31.0); Cardiac Risk Estimate 3.3 RATIO (4.0-6.7); Chloride 101 mMol/L (98-107); Cholesterol 100 mg/dL (132-200); Creatinine (Component) 1.2 mg/dL (0.6-1.3); Estimated Creatinine Clearance 63.4 mL/min (>60); Glucose 354 mg/dL (74-106); HDL Cholesterol 30 mg/dL (40-60); LDL Cholesterol,Calculated 59 mg/dL (0-130); Magnesium 2.1 mg/dL (1.6-2.6); Osmolality,Calculated 281 (275-295); Phosphorous 3.9 mg/dL (2.4-5.1); Potassium 4.5 mMol/L (3.4-5.1); Sodium 132 mMol/L (136-145); Thyroid Stimulating Hormone 1.09 uIU/mL (0.55-4.78); Total Protein 6.4 gm/dL (5.7-8.2); Triglycerides 55 mg/dL (30-150); eGFR > 60 See Note
--- NOTE | 2024-03-24 06:22 | PRELIM_ITS ---
CT angiogram of the chest with intravenous contrast (axial sections with sagittal and coronal reforma ts). March 24, 2024 at 0432 hoursClinical History: Acute respiratory distress w/tachycardia.Techni que:Helical axial sections with sagittal and coronal reformats of the chest were obtained with intrav enous contrast. Iterative reconstruction technique was employed to reduce patient radiation exposure. 3D/MIP reconstructed images were also provided. Comparison: No prior study is available for comparis on. Findings:There is no filling defect within the pulmonary artery divisions to suggest pulmonary th romboembolism. The mediastinum demonstrates no evidence of mass or lymphadenopathy. The thoracic aort a is unremarkable. There is no pericardial effusion. Coronary artery calcification is noted. Atelecta sis and ground-glass opacities in bilateral lower and right middle lobes. No evidence of pleural effu sonia or pneumothorax.The bones are osteopenic. Degenerative changes are identified in the spine. The visualized upper abdominal viscera are unremarkable.Impression:1. No CT evidence of pulmonary thrombo embolism.2. Atelectasis and ground-glass opacities in bilateral lower and right middle lobes.3. Other findings as described above. Report Electronically Signed By: Dory Turner 03/24/2024 6:21:16 AM [EST ]
[2024-03-24 06:33] LABS: Ferritin 162 ng/mL (10.5-307.3); Total Iron Binding Capacity 298 mcg/dL (250-425)
[2024-03-24 06:43] LABS: Iron 44 mcg/dL (65-175); Percent Iron Saturation 14 % (20-55); Unsaturated Iron Binding 254 (225-295)
[2024-03-24] MEDS: LEVALBUTEROL RT 0.63 MG/3 ML NEBU INH (07:23)
[2024-03-24] MEDS: INSULIN LISPRO (AdmeLOG) 1 UNIT/0.01 ML UNIT SC ×4 (07:30→21:08)
[2024-03-24 08:50] LABS: Lactate (Lactic Acid) 3.9 mMol/L (0.4-2.0)
[2024-03-24] MEDS: HEPARIN SOD INJ 5000 UNIT/ML VIAL SC ×2 (09:25→21:10)
[2024-03-24] MEDS: ESCITALOPRAM OXALATE 10 MG TABLET 20 MG PO (09:25)
[2024-03-24] MEDS: ARIPiprazole 5 MG TABLET 15 MG PO (09:25)
[2024-03-24] MEDS: Lisinopril 2.5 MG TABLET 5 MG PO (09:25)
[2024-03-24] MEDS: ALBUTEROL/IPRATROPIUM (Duoneb) RT SOL 3 ML NEBU INH ×4 (09:59→23:30)
[2024-03-24] MEDS: SENNA TABLET 1 TAB PO (10:19)
[2024-03-24] MEDS: SODIUM CHLORIDE 0.9% 500 ML 500 ML 999 ML IV (10:26)
--- NOTE | 2024-03-24 11:42 | PD.RESPRO ---
Documentation for date of: 03/24/24 Subjective Subjective Interval history: No acute overnight events. Continued on 12 L oxy mask. Endorsing mild SOB, productive cough and wheezing. Denies fever, chills, headaches, chest pain, GI or urinary symptoms. Exam Vital Signs Temp Pulse Resp BP Pulse Ox O2 Del Method O2 Flow Rate 97.2 F 89 14 139/60 H 92 L Oxy Mask 10 03/24/24 08:00 03/24/24 10:00 03/24/24 10:00 03/24/24 09:25 03/24/24 10:00 03/24/24 08:00 03/24/24 10:00 Narrative Exam GENERAL: Normal appearing middle-aged male, no apparent distress, on OxyMask 12 L HEENT: NCAT.?CABRERA. Oral mucosa is moist. Patent Nares NECK: Supple, nontender, no thyromegaly, no meningismus, no JVD, no step offs CARDIOVASCULAR: RRR, no m/g/r LUNGS: Diffuse wheezing on exam, no rales or rhonchi. Symmetrical chest rise. ABDOMEN: Soft, flat, nontender. No guarding/rebound tenderness/masses. +BS EXTREMITIES: Nontender.? No edema/cyanosis.?Moves all 4 extremities well, with full ROM and good CSM. SKIN: Warm and dry, no jaundice/rashes. MSK: No lumbar or midline, no CVA, no paraspinal muscle spasm or tenderness. NEURO: Cogwheel rigidity of bilateral upper extremity noted. No other focal neurologic deficits. PSYCHIATRIC: Normal mood and affect, cooperative, no SI or HI or hallucinations. Objective Labs 03/24/24 05:33 03/24/24 05:33 Labs: Laboratory Results - last 24 hr 03/23/24 03/23/24 03/23/24 19:25 20:16 22:40 WBC 10.4 D RBC 3.25 L Hgb 10.9 L Hct 32.0 L MCV 99 MCH 33.5 MCHC 34.1 RDW Std Deviation 45.7 H Plt Count 304 D Neut % (Auto) 83 H Lymph % (Auto) 10 [place] % (Auto) 7 Eos % (Auto) 0 Baso % (Auto) 0 Neut # (Auto) 8.6 H Lymph # (Auto) 1.0 [place] # (Auto) 0.7 Eos # (Auto) 0.0 Baso # (Auto) 0.0 Immature Gran # (Auto) 0.07 H Absolute Nucleated RBC 0.00 Immature Gran % 1 H Nucleated RBC % 0 PT INR Puncture Site Right Radial ABG pH 7.45 ABG pCO2 35 ABG pO2 52 L* ABG HCO3 24 ABG O2 Saturation 85 L ABG Base Excess 1 Oxygen Liter Flow 15 FiO2 21 Sodium 132 L Potassium 5.7 H D Chloride 98 Carbon Dioxide 25.6 Anion Gap 8 BUN 21 Creatinine 1.4 H Estim Creat Clear Calc 54.2 L eGFR 57 L BUN/Creatinine Ratio 15 Glucose 426 H* D Calculated Osmolality 285 Lactic Acid 3.5 H Calcium 9.7 Corrected Calcium 9.7 Phosphorus Magnesium 2.2 Iron TIBC Iron Saturation Unsat Iron Binding Ferritin Total Bilirubin 0.9 AST 31 ALT 25 Alkaline Phosphatase 114 D Troponin I < 0.020 B-Natriuretic Peptide < 20 Total Protein 6.7 Albumin 4.5 Globulin 2.2 L Albumin/Globulin Ratio 2.0 Triglycerides Cholesterol LDL Cholesterol, Calc HDL Cholesterol Cholesterol/HDL Ratio Procalcitonin 0.06 TSH Ur Collection Type Clean Catch Urine Color Lt-Yellow Urine Clarity Clear Urine pH 7.0 Ur Specific [place] 1.021 Urine Protein Negative Urine Glucose (UA) 4+ A Urine Ketones Trace Urine Blood Negative Urine Nitrite Negative Urine Bilirubin Negative Urine Urobilinogen (Auto) Negative Ur Leukocyte Esterase Negative Urine RBC 2 Urine WBC < 1 Ur Squamous Epith Cells 0 Urine Bacteria None Ur Culture Indicated? Not Indicated RSV Rapid 03/23/24 03/23/24 03/24/24 23:11 23:52 05:33 WBC 9.0 RBC 2.83 L Hgb 9.6 L Hct 28.4 L MCV 100 MCH 33.9 MCHC 33.8 RDW Std Deviation 46.6 H Plt Count 285 Neut % (Auto) 92 H Lymph % (Auto) 5 L [place] % (Auto) 2 Eos % (Auto) 0 Baso % (Auto) 0 Neut # (Auto) 8.3 H Lymph # (Auto) 0.5 L [place] # (Auto) 0.2 Eos # (Auto) 0.0 Baso # (Auto) 0.0 Immature Gran # (Auto) 0.07 H Absolute Nucleated RBC 0.00 Immature Gran % 1 H Nucleated RBC % 0 PT 11.1 INR 1.0 Puncture Site ABG pH ABG pCO2 ABG pO2 ABG HCO3 ABG O2 Saturation ABG Base Excess Oxygen Liter Flow FiO2 Sodium 132 L Potassium 4.5 D Chloride 101 Carbon Dioxide 23.3 Anion Gap 8 BUN 21 Creatinine 1.2 Estim Creat Clear Calc 63.4 eGFR > 60 BUN/Creatinine Ratio 18 Glucose 354 H D Calculated Osmolality 281 Lactic Acid 3.2 H Calcium 8.8 Corrected Calcium 8.8 Phosphorus 3.9 Magnesium 2.1 Iron 44 L TIBC 298 Iron Saturation 14 L Unsat Iron Binding 254 Ferritin 162 Total Bilirubin 0.8 AST 18 ALT 19 Alkaline Phosphatase 102 Troponin I B-Natriuretic Peptide Total Protein 6.4 Albumin 4.4 Globulin 2.0 L Albumin/Globulin Ratio 2.2 Triglycerides 55 Cholesterol 100 L LDL Cholesterol, Calc 59 HDL Cholesterol 30 L Cholesterol/HDL Ratio 3.3 L Procalcitonin TSH 1.09 Ur Collection Type Urine Color Urine Clarity Urine pH Ur Specific [place] Urine Protein Urine Glucose (UA) Urine Ketones Urine Blood Urine Nitrite Urine Bilirubin Urine Urobilinogen (Auto) Ur Leukocyte Esterase Urine RBC Urine WBC Ur Squamous Epith Cells Urine Bacteria Ur Culture Indicated? RSV Rapid Negative 03/24/24 08:31 WBC RBC Hgb Hct MCV MCH MCHC RDW Std Deviation Plt Count Neut % (Auto) Lymph % (Auto) [place] % (Auto) Eos % (Auto) Baso % (Auto) Neut # (Auto) Lymph # (Auto) [place] # (Auto) Eos # (Auto) Baso # (Auto) Immature Gran # (Auto) Absolute Nucleated RBC Immature Gran % Nucleated RBC % PT INR Puncture Site ABG pH ABG pCO2 ABG pO2 ABG HCO3 ABG O2 Saturation ABG Base Excess Oxygen Liter Flow FiO2 Sodium Potassium Chloride Carbon Dioxide Anion Gap BUN Creatinine Estim Creat Clear Calc eGFR BUN/Creatinine Ratio Glucose Calculated Osmolality Lactic Acid 3.9 H Calcium Corrected Calcium Phosphorus Magnesium Iron TIBC Iron Saturation Unsat Iron Binding Ferritin Total Bilirubin AST ALT Alkaline Phosphatase Troponin I B-Natriuretic Peptide Total Protein Albumin Globulin Albumin/Globulin Ratio Triglycerides Cholesterol LDL Cholesterol, Calc HDL Cholesterol Cholesterol/HDL Ratio Procalcitonin TSH Ur Collection Type Urine Color Urine Clarity Urine pH Ur Specific [place] Urine Protein Urine Glucose (UA) Urine Ketones Urine Blood Urine Nitrite Urine Bilirubin Urine Urobilinogen (Auto) Ur Leukocyte Esterase Urine RBC Urine WBC Ur Squamous Epith Cells Urine Bacteria Ur Culture Indicated? RSV Rapid ABG Interpretation ABG results: 03/23/24 20:16 ABG pH 7.45 ABG pCO2 35 ABG pO2 52 L* ABG HCO3 24 ABG O2 Saturation 85 L ABG Base Excess 1 Quality Measures Quality Measures sepsis Current suspected stage: ruled out Possible source: unknown Blood cultures ordered: yes Antibiotic ordered: Yes Assessment & Plan Assessment Current Active Medications: Generic Name Dose Route Start Last Admin Trade Name Freq PRN Reason Stop Dose Admin Acetaminophen 650 mg 03/23/24 22:50 Acetaminophen 325 Mg Tablet PO 04/22/24 22:49 Q6H PRN Pain 1-3 and/or Fever >100.1 Albuterol/Ipratropium 3 ml 03/24/24 11:00 03/24/24 09:59 Albuterol/Ipratropium (Duoneb) Rt Anabel 3 Ml Nebu INH 04/23/24 10:59 3 ml Q4HRRT GUNJAN Administration Amlodipine Besylate 5 mg 03/25/24 09:00 Amlodipine Besylate 5 Mg Tablet PO 04/24/24 08:59 QDAY GUNJAN Aripiprazole 15 mg 03/24/24 09:00 03/24/24 09:25 Aripiprazole 5 Mg Tablet PO 04/23/24 08:59 15 mg QDAY GUNJAN Administration Azithromycin 250 mg 03/24/24 21:00 Azithromycin 250 Mg Tablet PO 03/31/24 20:59 HS GUNJAN Buspirone HCl 15 mg 03/24/24 06:00 03/24/24 05:13 Buspirone Hcl 5 Mg Tablet PO 04/23/24 05:59 15 mg TID GUNJAN Administration Dapsone 25 mg 03/24/24 10:15 Home Medication- Please Speak With Patient Caregiver To Have Rx Brought To [facility] PO 03/31/24 10:14 QDAY GUNJAN Dextrose 25 ml 03/23/24 22:54 Dextrose 50%-Water Inj 50 Ml Syringe IV 04/22/24 22:53 Q15MIN PRN BG 50-70 responsive npo pt Dextrose 50 ml 03/23/24 22:54 Dextrose 50%-Water Inj 50 Ml Syringe IV 04/22/24 22:53 Q15MIN PRN BG <50 OR BG <70 & pt unresponsive Escitalopram Oxalate 20 mg 03/24/24 09:00 03/24/24 09:25 Escitalopram Oxalate 10 Mg Tablet PO 04/23/24 08:59 20 mg QDAY GUNJAN Administration Glucagon 1 mg 03/23/24 22:54 Glucagon Inj 1 Mg Vial IM Q15MIN PRN BG <70, and no IV access Heparin Sodium (Porcine) 5,000 unit 03/24/24 09:00 03/24/24 09:25 Heparin Sod Inj 5000 Unit/Ml Vial SC 04/07/24 08:59 5,000 unit Q12HR GUNJAN Administration Hydralazine HCl 10 mg 03/23/24 22:57 Hydralazine Inj 20 Mg/Ml Vial IV 04/22/24 22:56 Q6HR PRN Systolic >180 and HR <70 Ceftriaxone Sodium/Dextrose 50 mls @ 100 mls/hr 03/24/24 21:00 Rocephin/D5w 1gm Iv Premix IV 03/31/24 20:59 HS GUNJAN Insulin Human Lispro 0 unit 03/24/24 07:30 03/24/24 07:30 Insulin Lispro (Admelog) 1 Unit/0.01 Ml Unit SC 04/23/24 07:29 8 unit ACHS GUNJAN Administration Protocol Labetalol HCl 10 mg 03/23/24 22:57 Labetalol Inj 5 Mg/Ml Vial 20 Ml IVP 04/22/24 22:56 Q6HR PRN Systolic >180 and HR >70 Levalbuterol HCl 0.63 mg 03/23/24 22:55 03/24/24 07:23 Levalbuterol Rt 0.63 Mg/3 Ml Nebu INH 04/22/24 22:54 0.63 mg Q8HR PRN Administration WHEEZING Levothyroxine Sodium 100 mcg 03/24/24 06:00 03/24/24 05:13 Levothyroxine Sodium 100 Mcg Tablet PO 04/23/24 05:59 100 mcg ACBR GUNJAN Administration Lisinopril 5 mg 03/24/24 09:00 03/24/24 09:25 Lisinopril 2.5 Mg Tablet PO 04/23/24 08:59 5 mg QDAY GUNJAN Administration Ondansetron HCl 4 mg 03/23/24 22:50 Ondansetron Inj 2 Mg/Ml Inj 2 Ml IV 04/22/24 22:49 Q6H PRN NAUSEA OR VOMITING Protocol Sennosides 1 tab 03/24/24 09:00 03/24/24 10:19 Senna Tablet PO 04/23/24 08:59 1 tab QDAY GUNJAN Administration Protocol Sodium Chloride 3 ml 03/23/24 19:15 Sodium Chloride Rt Anabel 0.9% 3 Ml Nebu INH 04/22/24 19:14 PRN PRN SOLN Plan In summary: 59-year-old male with PMHx of T1DM, HTN, HLD, BRIGETTE/MDD, admitted for acute hypoxic respiratory failure in settings of pneumonia. Continued on ANTIBIOTICS and breathing treatment. Still requiring 10-12L oxy mask. Acute hypoxic respiratory failure 2/2 [facility] pneumonia Lactic acidosis (improving) Recently completed ANTIBIOTICS for URI. Initially improved however has had new SOB for 9 days. Likely related to sick contact (grandchild with URI). Presented with WBC 10.4 and lactic acid of 3.2. ABG showed pCO2 52, pH 7.45, pCO2 35, bicarb 24. CXR demonstrated lateral pneumonia. CTA ruled out PE demonstrated pneumonia findings. Still has wheezing on exam. Requiring 10-12 L of oxy mask. S/p METHYLPREDNISOLONE in ED. ? Continue CEFTRIAXONE (03/14 to [present]) ? Continue AZITHROMYCIN (03/14 to [present]) ? Continue DuoNebs ? Pending sputum/blood culture, RSV, Legionella, cocci ? Follow-up repeat ABG in a.m. Vasovagal syncope Endorsed 2 episodes of syncope in settings of pneumonia. Most likely related to dehydration. No concerning symptoms for cardiac causes such as chest pain, palpitations, abnormal EKG findings. Likely stroke, no focal deficit. Currently asymptomatic. Less likely metabolic abnormalities based on CMP. ? Continue to monitor ? Physical therapy IDDM type I Well-controlled, A1c 5.5 from October 2023. Currently BG 346, likely 2/2 STEROIDS. ? Continue glargine 20 units HS ? INSULIN sliding scale ? Accu-Cheks LETICIA (resolved) Likely prerenal 2/2 dehydration. Admission CR 1.4, improved with resuscitation, currently 1.2. ? Started 500 cc NS one-time ? Renally dose meds, avoid overdiuresis and NEPHROTOXINS Hyperkalemia (resolved) Admission potassium 5.7 in setting of LETICIA versus dehydration. No EKG changes. S/p KAYEXALATE 15 mg x 1 ? Daily CMP Iron deficiency anemia Normocytic anemia with Hgb 10.9. No signs of active bleeding. Low iron storage labs. ? Consider FERROUS SULFATE daily ? Pending B12 and folate Hypertension Currently normotensive ? Continue home AMLODIPINE 5 mg daily ? Holding home LISINOPRIL 2/2 LETICIA Hypothyroidism ? Continued home LEVOTHYROXINE 100 mcg AC BR Generalized anxiety disorder/Depression ? Continued home ABILIFY, ESCITALOPRAM, BUSPAR Health maintenance Diet: CHO consistent GI prophylaxis: Not indicated DVT prophylaxis: HEPARIN subcu Antibiotics: CEFTRIAXONE, AZITHROMYCIN CODE STATUS: Full code Disposition: Pending improvement in oxygen need Patient case was discussed with attending, Dr. Taz Tipton DO and senior resident Dr. Macdonald. Che Ahmadi DO PGYI Attending Provider Attestation/Addendum I have discussed and was present for the essential components of the history, physical examination, diagnosis, and treatment plan with the resident. I agree with the patient's care as documented by the resident and amended herein by me. Jono Tipton DO. Patient seen and evaluated this AM. No acute events overnight, vital signs stable, patient afebrile. CBC significant for hemoglobin 9.6 but stable, BMP demonstrating elevated glucose at 354 however has further down trended since lab draw, lactic acid also down trended to 2.6. Will continue ceftriaxone and azithromycin for now, will follow-up with culture results, restart home medications as appropriate and titrate insulin to maintain optimal blood glucose levels while inpatient. Will continue to monitor closely while he is here. Although this document has been carefully reviewed, there may still be some phonetic and other typographical errors. These errors are purely grammatical due to imperfections in the software program and should not be construed in any way to compromise the substance of the patient's medical care during this visit.
[2024-03-24 11:47] LABS: Reflex Lactate? Y
[2024-03-24 12:43] LABS: Lactic Acid, 3 HR 2.6 mMol/L (0.4-2.0)
[2024-03-24] MEDS: DAPSONE 25 MG TABLET PO (13:05)
[2024-03-24 13:06] LABS: Cocci Serology, IgM Negative (Negative)
--- NOTE | 2024-03-24 13:12 | PC.SS ---
Rounding: Hypoxic on 10L Oxy mask
[2024-03-24 18:08] LABS: Lactate (Lactic Acid) 1.8 mMol/L (0.4-2.0)
[2024-03-24] MEDS: INSULIN GLARGINE (Lantus) 5 UNIT/0.05 ML (PER 5 UNITS) 20 UNIT SC (21:08)
[2024-03-24] MEDS: AZITHROMYCIN 250 MG TABLET PO (21:10)
[2024-03-24] MEDS: cefTRIAXone/D5w 1gm IV premix 50 ML IV (21:11)
[2024-03-25] VITALS (13 sets, daily range): BP systolic 123–147; BP diastolic 66–79; PULSE 72–88; RESP 11–20; TEMP 36–36.7; O2SAT 90–95
[2024-03-25 01:05] LABS: Vitamin B12 508 pg/mL (211-911)
[2024-03-25] MEDS: BusPIRone HCL 5 MG TABLET 15 MG PO ×3 (05:25→21:49)
[2024-03-25] MEDS: LEVOTHYROXINE SODIUM 100 MCG TABLET PO (05:25)
[2024-03-25 06:15] LABS: Basophils % (Auto) 0 % (0-2.5); Eosinophils % (Auto) 0 % (0-10); Hematocrit 28.8 % (41.0-53.0); Hemoglobin 9.7 g/dL (13.5-16.0); Immature Granulocytes % (Auto) 1 % (0-0); Immature Granulocytes Auto 0.08 Thou/mm3 (0.00-0.00); Lymphocytes # (Auto) 2.8 Thou/mm3 (1.0-4.8); Lymphocytes % (Auto) 20 % (10-50); Mean Corpuscular HGB Conc 33.7 g/dl (31.0-37.0); Mean Corpuscular Hemoglobin 34.3 pg (25.0-35.0); Mean Corpuscular Volume 102 fL (80-100); Monocytes % (Auto) 7 % (0-12); Neutrophils # (Auto) 10.1 Thou/mm3 (1.8-7.7); Neutrophils % (Auto) 72 % (37-80); Nucleated Red Blood Cell % 0 /100 WBC (0); Platelet Count 374 Thou/mm3 (140-440); RDW Standard Deviation 47.9 fL (35.1-43.9); Red Blood Count 2.83 Miln/mm3 (4.50-5.90); White Blood Count 14.1 Thou/mm3 (3.8-10.6)
[2024-03-25] MEDS: ALBUTEROL/IPRATROPIUM (Duoneb) RT SOL 3 ML NEBU INH ×3 (06:17→19:59)
[2024-03-25 06:41] LABS: Alanine Aminotransferase 19 U/L (10-49); Albumin, Serum 4.3 gm/dL (3.4-4.8); Albumin/Globulin Ratio 2.2 (1.2-2.2); Alkaline Phosphatase 65 U/L (46-116); Anion Gap 6 (7-16); Aspartate Amino Transferase 25 U/L (0-34); BUN/Creatinine Ratio 18 Ratio (12-20); Bilirubin,Total 0.8 mg/dL (0.3-1.2); Blood Urea Nitrogen 18 mg/dL (9-23); Carbon Dioxide 29.2 mMol/L (20.0-31.0); Chloride 102 mMol/L (98-107); Estimated Creatinine Clearance 76.1 mL/min (>60); Glucose 54 mg/dL (74-106); Magnesium 2.1 mg/dL (1.6-2.6); Osmolality,Calculated 273 (275-295); Phosphorous 4.1 mg/dL (2.4-5.1); Potassium 4.3 mMol/L (3.4-5.1); Sodium 137 mMol/L (136-145); Total Protein 6.3 gm/dL (5.7-8.2); eGFR > 60 See Note
--- NOTE | 2024-03-25 09:29 | XR_ITS ---
Examination: AP chest single view Technique one AP portable upright chest single view Exam date and time: March 25, 2024 0953 hours Comparison March 15, 2024 INDICATIONS: Shortness of breath today. FINDINGS: Normal heart size Mild subsegmental atelectasis left base No lobar pneumonia Moderate osteopenia IMPRESSION: Minor subsegmental atelectasis left base
[2024-03-25] MEDS: CEFEPIME INJ 2 GM in SODIUM CHLORIDE 0.9% (P) 50 ML IV ×3 (09:46→21:49)
[2024-03-25] MEDS: ESCITALOPRAM OXALATE 10 MG TABLET 20 MG PO (09:47)
[2024-03-25] MEDS: amLODIPine BESYLATE 5 MG TABLET PO (09:48)
[2024-03-25] MEDS: metroNIDAZOLE 250 MG TABLET 500 MG PO ×3 (09:48→21:49)
[2024-03-25] MEDS: ARIPiprazole 5 MG TABLET 15 MG PO (09:48)
[2024-03-25] MEDS: DAPSONE 25 MG TABLET PO (09:49)
[2024-03-25] MEDS: HEPARIN SOD INJ 5000 UNIT/ML VIAL SC ×2 (09:50→21:56)
[2024-03-25] MEDS: VANCOMYCIN/WATER 1250 MG IVPB 250 ML 120 MG IV (10:24)
--- NOTE | 2024-03-25 11:10 | PC.SS ---
Addendum entered by Yvonne Moralez 03/25/24 14:39: rounding note: Patient is on high flow 02. Not stable for discharge. Original Note: Patient is alert/oriented. He resides with family. Independent with ADL's. Admitted for acute respiratory distress. [facility]L continuous. He is diabetic and uses a glucometer machine at home. [facility] Patient follows with Dr. Mortensen. Last appt. was 3 months ago. states patient's insurance will change effect. 03-27-2024. Copy to be provided to registration. Patient's alt medical decision maker is , Becky. D/c plan is to return home.
--- NOTE | 2024-03-25 11:52 | ESPR_ITS ---
Documentation for date of: 03/25/24 Subjective Subjective Interval history: No acute overnight events. Patient feeling well today, states he is breathing better; however, his oxygen demand has gone up, currently on high flow. Denies fever, chills, headaches, chest pain, sob, productive cough, GI or urinary symptoms. Exam Vital Signs Temp Pulse Resp BP Pulse Ox O2 Del Method O2 Flow Rate 97.2 F 83 15 135/68 H 95 High Flow Nasal Cannula 30 03/25/24 08:00 03/25/24 11:09 03/25/24 11:09 03/25/24 09:48 03/25/24 11:09 03/25/24 08:00 03/25/24 11:09 FiO2 75 03/25/24 11:09 Narrative Exam GENERAL: Normal appearing middle-aged male, no apparent distress, on 30 L high flow 70% FiO2 HEENT: NCAT.?CABRERA. Oral mucosa is moist. Patent Nares NECK: Supple, nontender, no thyromegaly, no meningismus, no JVD, no step offs CARDIOVASCULAR: RRR, no m/g/r LUNGS: Diffuse wheezing on exam, slight rhonchi bibasilarly. No rales. Symmetrical chest rise. ABDOMEN: Soft, flat, nontender. No guarding/rebound tenderness/masses. +BS EXTREMITIES: Nontender.? No edema/cyanosis.?Moves all 4 extremities well, with full ROM and good CSM. SKIN: Warm and dry, no jaundice/rashes. MSK: No lumbar or midline, no CVA, no paraspinal muscle spasm or tenderness. NEURO: Cogwheel rigidity of bilateral upper extremity noted. No other focal neurologic deficits. PSYCHIATRIC: Normal mood and affect, cooperative, no SI or HI or hallucinations. Objective Labs 03/25/24 05:29 03/25/24 05:29 Labs: Laboratory Results - last 24 hr 03/24/24 03/24/24 03/24/24 05:33 12:34 18:00 WBC RBC Hgb Hct MCV MCH MCHC RDW Std Deviation Plt Count Neut % (Auto) Lymph % (Auto) Bland % (Auto) Eos % (Auto) Baso % (Auto) Neut # (Auto) Lymph # (Auto) Bland # (Auto) Eos # (Auto) Baso # (Auto) Immature Gran # (Auto) Absolute Nucleated RBC Immature Gran % Nucleated RBC % Sodium Potassium Chloride Carbon Dioxide Anion Gap BUN Creatinine Estim Creat Clear Calc eGFR BUN/Creatinine Ratio Glucose Calculated Osmolality Lactic Acid 2.6 H 1.8 Calcium Corrected Calcium Phosphorus Magnesium Total Bilirubin AST ALT Alkaline Phosphatase Total Protein Albumin Globulin Albumin/Globulin Ratio Vitamin B12 508 Coccidioides IgM Ab Negative 03/25/24 05:29 WBC 14.1 H D RBC 2.83 L Hgb 9.7 L Hct 28.8 L MCV 102 H MCH 34.3 MCHC 33.7 RDW Std Deviation 47.9 H Plt Count 374 D Neut % (Auto) 72 Lymph % (Auto) 20 Bland % (Auto) 7 Eos % (Auto) 0 Baso % (Auto) 0 Neut # (Auto) 10.1 H Lymph # (Auto) 2.8 Bland # (Auto) 1.0 H Eos # (Auto) 0.0 Baso # (Auto) 0.0 Immature Gran # (Auto) 0.08 H Absolute Nucleated RBC 0.00 Immature Gran % 1 H Nucleated RBC % 0 Sodium 137 Potassium 4.3 Chloride 102 Carbon Dioxide 29.2 Anion Gap 6 L BUN 18 Creatinine 1.0 Estim Creat Clear Calc 76.1 eGFR > 60 BUN/Creatinine Ratio 18 Glucose 54 L D Calculated Osmolality 273 L Lactic Acid Calcium 9.0 Corrected Calcium 9.0 Phosphorus 4.1 Magnesium 2.1 Total Bilirubin 0.8 AST 25 ALT 19 Alkaline Phosphatase 65 D Total Protein 6.3 Albumin 4.3 Globulin 2.0 L Albumin/Globulin Ratio 2.2 Vitamin B12 Coccidioides IgM Ab ABG Interpretation ABG results: 03/23/24 20:16 ABG pH 7.45 ABG pCO2 35 ABG pO2 52 L* ABG HCO3 24 ABG O2 Saturation 85 L ABG Base Excess 1 Quality Measures Quality Measures sepsis Current suspected stage: ruled out Possible source: unknown Blood cultures ordered: yes Antibiotic ordered: Yes Assessment & Plan Assessment Current Active Medications: Generic Name Dose Route Start Last Admin Trade Name Freq PRN Reason Stop Dose Admin Acetaminophen 650 mg 03/23/24 22:50 Acetaminophen 325 Mg Tablet PO 04/22/24 22:49 Q6H PRN Pain 1-3 and/or Fever >100.1 Acetylcysteine 3 ml 03/25/24 15:00 Acetylcysteine Rt Anabel 10% 4 Ml Nebu INH 04/24/24 14:59 Q4HRRT GUNJAN Albuterol/Ipratropium 3 ml 03/24/24 11:00 03/25/24 11:07 Albuterol/Ipratropium (Duoneb) Rt Anabel 3 Ml Nebu INH 04/23/24 10:59 3 ml Q4HRRT GUNJAN Administration Amlodipine Besylate 5 mg 03/25/24 09:00 03/25/24 09:48 Amlodipine Besylate 5 Mg Tablet PO 04/24/24 08:59 5 mg QDAY GUNJAN Administration Aripiprazole 15 mg 03/24/24 09:00 03/25/24 09:48 Aripiprazole 5 Mg Tablet PO 04/23/24 08:59 15 mg QDAY GUNJAN Administration Buspirone HCl 15 mg 03/24/24 06:00 03/25/24 05:25 Buspirone Hcl 5 Mg Tablet PO 04/23/24 05:59 15 mg TID GUNJAN Administration Dapsone 25 Mg Tablet 0 ea 03/24/24 12:00 03/25/24 09:49 PO 04/23/24 11:59 2 tablet QDAY GUNJAN Administration Dextrose 25 ml 03/23/24 22:54 Dextrose 50%-Water Inj 50 Ml Syringe IV 04/22/24 22:53 Q15MIN PRN BG 50-70 responsive npo pt Dextrose 50 ml 03/23/24 22:54 Dextrose 50%-Water Inj 50 Ml Syringe IV 04/22/24 22:53 Q15MIN PRN BG <50 OR BG <70 & pt unresponsive Escitalopram Oxalate 20 mg 03/24/24 09:00 03/25/24 09:47 Escitalopram Oxalate 10 Mg Tablet PO 04/23/24 08:59 20 mg QDAY GUNJAN Administration Glucagon 1 mg 03/23/24 22:54 Glucagon Inj 1 Mg Vial IM Q15MIN PRN BG <70, and no IV access Heparin Sodium (Porcine) 5,000 unit 03/24/24 09:00 03/25/24 09:50 Heparin Sod Inj 5000 Unit/Ml Vial SC 04/07/24 08:59 5,000 unit Q12HR GUNJAN Administration Hydralazine HCl 10 mg 03/23/24 22:57 Hydralazine Inj 20 Mg/Ml Vial IV 04/22/24 22:56 Q6HR PRN Systolic >180 and HR <70 Cefepime HCl 2 gm/ Sodium 50 mls @ 100 mls/hr 03/25/24 08:21 03/25/24 09:46 Chloride IV 04/01/24 08:20 100 mls/hr Q8HR GUNJAN Administration Vancomycin/Sodium Chloride 750 mg in 150 mls @ 120 mls/hr 03/25/24 22:00 Vancomycin/Ns 750 Mg Ivpb IV 04/01/24 21:59 BID@1000,2200 GUNJAN Insulin Glargine 15 unit 03/25/24 21:00 Insulin Glargine (Lantus) 5 Unit/0.05 Ml (Per 5 Units) SC 04/24/24 20:59 HS [facility] Insulin Human Lispro 0 unit 03/25/24 11:30 Insulin Lispro (Admelog) 1 Unit/0.01 Ml Unit SC 04/24/24 11:29 AC [facility] Protocol Labetalol HCl 10 mg 03/23/24 22:57 Labetalol Inj 5 Mg/Ml Vial 20 Ml IVP 04/22/24 22:56 Q6HR PRN Systolic >180 and HR >70 Levalbuterol HCl 0.63 mg 03/23/24 22:55 03/24/24 07:23 Levalbuterol Rt 0.63 Mg/3 Ml Nebu INH 04/22/24 22:54 0.63 mg Q8HR PRN Administration WHEEZING Levothyroxine Sodium 100 mcg 03/24/24 06:00 03/25/24 05:25 Levothyroxine Sodium 100 Mcg Tablet PO 04/23/24 05:59 100 mcg ACBR GUNJAN Administration Lisinopril 5 mg 03/24/24 09:00 03/24/24 09:25 Lisinopril 2.5 Mg Tablet PO 04/23/24 08:59 5 mg QDAY GUNJAN Administration Metronidazole 500 mg 03/25/24 08:30 03/25/24 09:48 Metronidazole 250 Mg Tablet PO 04/01/24 08:29 500 mg Q8HR GUNJAN Administration Ondansetron HCl 4 mg 03/23/24 22:50 Ondansetron Inj 2 Mg/Ml Inj 2 Ml IV 04/22/24 22:49 Q6H PRN NAUSEA OR VOMITING Protocol Pharmacy Consult 1 each 03/25/24 09:00 Vancomycin Pharmacy To Dose 1 Each Each IV 04/24/24 08:59 QDAY PRN CONSULT Sennosides 1 tab 03/24/24 09:00 03/25/24 09:49 Senna Tablet PO 04/23/24 08:59 Not Given QDAY GUNJAN Protocol Sodium Chloride 3 ml 03/23/24 19:15 Sodium Chloride Rt Anabel 0.9% 3 Ml Nebu INH 04/22/24 19:14 PRN PRN SOLN Plan In summary: 59-year-old male with PMHx of T1DM, HTN, HLD, BRIGETTE/MDD, admitted for acute hypoxic respiratory failure in settings of pneumonia. Continued on ANTIBIOTICS and breathing treatment. Oxygen demand increased overnight, currently on 30 L high flow with 75% FiO2, satting in mid 90s. New leukocytosis of 14.1, will change ANTIBIOTICS as below. Pancultures still pending. Acute hypoxic respiratory failure 2/2 [facility] pneumonia Lactic acidosis (resolved) Recently completed outpatient ANTIBIOTICS for URI. Initially improved however has had new SOB for 9 days. Likely related to sick contact (grandchild with URI). Show ABG showed pCO2 52, pH 7.45. Completed METHYLPREDNISOLONE x 2 in ED. Originally started on CEFTRIAXONE/AZITHROMYCIN with improvement in symptoms and oxygen demand. However, appears to require more oxygen overnight, currently on high flow. New leukocytosis with WBC 14.1 overnight. Repeat CXR no significant changes. We changed ANTIBIOTICS as below and ordered COVID PCR (rapid test was neg). ? Continue CEFEPIME 2 mg q.8h. (03/25 to [present]) ? Continue METRONIDAZOLE 500 mg q.8h. (03/25 to [present]) ? Continue DuoNebs ? Continue SODIUM CHLORIDE Nebs with RT ? Pending sputum/blood culture, RSV, Legionella, cocci Vasovagal syncope Endorsed 2 episodes of syncope in settings of pneumonia. Most likely related to dehydration. No concerning symptoms for cardiac causes such as chest pain, palpitations, abnormal EKG findings. Likely stroke, no focal deficit. Currently asymptomatic. Less likely metabolic abnormalities based on CMP. ? Continue to monitor ? Physical therapy IDDM type I Well-controlled, A1c 5.5 from October 2023. Currently BG 346, likely 2/2 STEROIDS. ? Continue glargine 20 units HS ? INSULIN sliding scale ? Accu-Cheks LETICIA (resolved) Likely prerenal 2/2 dehydration. Admission CR 1.4, improved with resuscitation, currently 1.2. ? Started 500 cc NS one-time ? Renally dose meds, avoid overdiuresis and NEPHROTOXINS Hyperkalemia (resolved) Admission potassium 5.7 in setting of LETICIA versus dehydration. No EKG changes. S/p KAYEXALATE 15 mg x 1 ? Daily CMP Iron deficiency anemia Normocytic anemia with Hgb 10.9. No signs of active bleeding. Low iron storage labs. B12 WNL. ? Consider starting FERROUS SULFATE outpatient once infection resolved ? Pending folate level Hypertension Currently normotensive ? Continue home AMLODIPINE 5 mg daily ? Holding home LISINOPRIL 2/2 LETICIA Hypothyroidism ? Continued home LEVOTHYROXINE 100 mcg AC BR Generalized anxiety disorder/Depression ? Continued home ABILIFY, ESCITALOPRAM, BUSPAR Health maintenance Diet: CHO consistent GI prophylaxis: Not indicated DVT prophylaxis: HEPARIN subcu Antibiotics: CEFTRIAXONE, AZITHROMYCIN CODE STATUS: Full code Disposition: Pending improvement in oxygen need Patient case was discussed with attending, Dr. Taz Tipton DO and senior resident Dr. Macdonald. Che Ahmadi DO PGYI Attending Provider Attestation/Addendum I have discussed and was present for the essential components of the history, physical examination, diagnosis, and treatment plan with the resident. I agree with the patient's care as documented by the resident and amended herein by me. Jono Tipton DO. Although this document has been carefully reviewed, there may still be some phonetic and other typographical errors. These errors are purely grammatical due to imperfections in the software program and should not be construed in any way to compromise the substance of the patient's medical care during this visit.
[2024-03-25] MEDS: INSULIN LISPRO (AdmeLOG) 1 UNIT/0.01 ML UNIT SC ×2 (12:28→17:16)
--- NOTE | 2024-03-25 14:44 | PC.PT ---
PT eval only at this time. Patient is I with [employer] and has good standing balance.
[2024-03-25 16:48] LABS: COVID-19 Confirmatory PCR Negative (Neg)
[2024-03-25] MEDS: INSULIN GLARGINE (Lantus) 5 UNIT/0.05 ML (PER 5 UNITS) 15 UNIT SC (22:00)
[2024-03-25] MEDS: VANCOMYCIN/NS 750 MG IVPB 750 MG/150 ML BAG 120 MG IV (22:33)
[2024-03-26] VITALS (16 sets, daily range): BP systolic 137–157; BP diastolic 63–73; PULSE 71–101; RESP 10–27; TEMP 36.1–36.5; O2SAT 92–96; BMI 27.0
[2024-03-26] MEDS: ALBUTEROL/IPRATROPIUM (Duoneb) RT SOL 3 ML NEBU INH ×4 (00:30→19:34)
[2024-03-26] MEDS: CEFEPIME INJ 2 GM in SODIUM CHLORIDE 0.9% (P) 50 ML IV ×3 (05:07→21:11)
[2024-03-26] MEDS: metroNIDAZOLE 250 MG TABLET 500 MG PO ×3 (05:08→21:10)
[2024-03-26] MEDS: LEVOTHYROXINE SODIUM 100 MCG TABLET PO (05:08)
[2024-03-26] MEDS: BusPIRone HCL 5 MG TABLET 15 MG PO ×3 (05:08→21:10)
[2024-03-26 06:02] LABS: Basophils % (Auto) 0 % (0-2.5); Eosinophils # (Auto) 0.2 Thou/mm3 (0.0-0.5); Eosinophils % (Auto) 3 % (0-10); Hemoglobin 9.7 g/dL (13.5-16.0); Immature Granulocytes % (Auto) 1 % (0-0); Immature Granulocytes Auto 0.06 Thou/mm3 (0.00-0.00); Lymphocytes # (Auto) 1.7 Thou/mm3 (1.0-4.8); Lymphocytes % (Auto) 21 % (10-50); Mean Corpuscular HGB Conc 33.4 g/dl (31.0-37.0); Mean Corpuscular Hemoglobin 33.4 pg (25.0-35.0); Mean Corpuscular Volume 100 fL (80-100); Monocytes # (Auto) 0.8 Thou/mm3 (0.0-0.8); Monocytes % (Auto) 10 % (0-12); Neutrophils # (Auto) 5.4 Thou/mm3 (1.8-7.7); Neutrophils % (Auto) 66 % (37-80); Nucleated Red Blood Cell % 0 /100 WBC (0); Platelet Count 273 Thou/mm3 (140-440); RDW Standard Deviation 47.7 fL (35.1-43.9); White Blood Count 8.3 Thou/mm3 (3.8-10.6)
[2024-03-26 06:38] LABS: Alanine Aminotransferase 13 U/L (10-49); Albumin, Serum 4.1 gm/dL (3.4-4.8); Alkaline Phosphatase 73 U/L (46-116); Anion Gap 8 (7-16); Aspartate Amino Transferase 17 U/L (0-34); BUN/Creatinine Ratio 15 Ratio (12-20); Bilirubin,Total 1.3 mg/dL (0.3-1.2); Blood Urea Nitrogen 16 mg/dL (9-23); Calcium 8.9 mg/dL (8.3-10.6); Calcium (Corrected) 8.9 mg/dL (8.5-10.1); Carbon Dioxide 27.8 mMol/L (20.0-31.0); Chloride 98 mMol/L (98-107); Creatinine (Component) 1.1 mg/dL (0.6-1.3); Estimated Creatinine Clearance 69.2 mL/min (>60); Globulin 2.1 gm/dL (2.3-3.5); Glucose 199 mg/dL (74-106); Osmolality,Calculated 275 (275-295); Phosphorous 4.1 mg/dL (2.4-5.1); Potassium 4.2 mMol/L (3.4-5.1); Sodium 134 mMol/L (136-145); Total Protein 6.2 gm/dL (5.7-8.2); eGFR > 60 See Note
[2024-03-26] MEDS: INSULIN LISPRO (AdmeLOG) 1 UNIT/0.01 ML UNIT SC ×2 (07:40→11:36)
[2024-03-26] MEDS: DAPSONE 25 MG TABLET PO (08:58)
[2024-03-26] MEDS: amLODIPine BESYLATE 5 MG TABLET PO (08:59)
[2024-03-26] MEDS: ARIPiprazole 5 MG TABLET 15 MG PO (08:59)
[2024-03-26] MEDS: ESCITALOPRAM OXALATE 10 MG TABLET 20 MG PO (09:00)
[2024-03-26] MEDS: HEPARIN SOD INJ 5000 UNIT/ML VIAL SC ×2 (09:01→21:10)
[2024-03-26] MEDS: VANCOMYCIN/WATER 1250 MG IVPB 250 ML 120 MG IV (10:41)
--- NOTE | 2024-03-26 11:26 | PD.RESPRO ---
Documentation for date of: 03/26/24 Subjective Subjective Interval history: No acute overnight events. Continued on high flow overnight, however oxygen demand improving. Reports breathing comfortably. Denies fever, chills, headaches, chest pain, sob, cough, GI or urinary symptoms. Exam Vital Signs Temp Pulse Resp BP Pulse Ox O2 Del Method O2 Flow Rate 97.7 F 83 17 150/73 H 95 High Flow Nasal Cannula 30 03/26/24 08:00 03/26/24 08:59 03/26/24 08:00 03/26/24 08:59 03/26/24 08:00 03/26/24 08:00 03/26/24 08:00 FiO2 55 03/26/24 07:46 Narrative Exam GENERAL: Normal appearing middle-aged male, no apparent distress, on 30 L high flow 70% FiO2 HEENT: NCAT.?CABRERA. Oral mucosa is moist. Patent Nares NECK: Supple, nontender, no thyromegaly, no meningismus, no JVD, no step offs CARDIOVASCULAR: RRR, no m/g/r LUNGS: Improved bilateral wheezing, slight rhonchi bibasilarly. No rales. Symmetrical chest rise. ABDOMEN: Soft, flat, nontender. No guarding/rebound tenderness/masses. +BS EXTREMITIES: Nontender.? No edema/cyanosis.?Moves all 4 extremities well, with full ROM and good CSM. SKIN: Warm and dry, no jaundice/rashes. MSK: No lumbar or midline, no CVA, no paraspinal muscle spasm or tenderness. NEURO: Cogwheel rigidity of bilateral upper extremity noted. No other focal neurologic deficits. PSYCHIATRIC: Normal mood and affect, cooperative, no SI or HI or hallucinations. Objective Labs 03/26/24 04:48 03/26/24 04:48 Labs: Laboratory Results - last 24 hr 03/25/24 03/26/24 12:30 04:48 WBC 8.3 D RBC 2.90 L Hgb 9.7 L Hct 29.0 L MCV 100 MCH 33.4 MCHC 33.4 RDW Std Deviation 47.7 H Plt Count 273 D Neut % (Auto) 66 Lymph % (Auto) 21 Saunders % (Auto) 10 Eos % (Auto) 3 Baso % (Auto) 0 Neut # (Auto) 5.4 Lymph # (Auto) 1.7 Saunders # (Auto) 0.8 Eos # (Auto) 0.2 Baso # (Auto) 0.0 Immature Gran # (Auto) 0.06 H Absolute Nucleated RBC 0.00 Immature Gran % 1 H Nucleated RBC % 0 Sodium 134 L Potassium 4.2 Chloride 98 Carbon Dioxide 27.8 Anion Gap 8 BUN 16 Creatinine 1.1 Estim Creat Clear Calc 69.2 eGFR > 60 BUN/Creatinine Ratio 15 Glucose 199 H D Calculated Osmolality 275 Calcium 8.9 Corrected Calcium 8.9 Phosphorus 4.1 Magnesium 2.0 Total Bilirubin 1.3 H D AST 17 ALT 13 Alkaline Phosphatase 73 Total Protein 6.2 Albumin 4.1 Globulin 2.1 L Albumin/Globulin Ratio 2.0 SARS-CoV-2 (PCR) Negative ABG Interpretation ABG results: 03/23/24 20:16 ABG pH 7.45 ABG pCO2 35 ABG pO2 52 L* ABG HCO3 24 ABG O2 Saturation 85 L ABG Base Excess 1 Quality Measures Quality Measures sepsis Current suspected stage: ruled out Possible source: unknown Blood cultures ordered: yes Antibiotic ordered: Yes Assessment & Plan Assessment Current Active Medications: Generic Name Dose Route Start Last Admin Trade Name Freq PRN Reason Stop Dose Admin Acetaminophen 650 mg 03/23/24 22:50 Acetaminophen 325 Mg Tablet PO 04/22/24 22:49 Q6H PRN Pain 1-3 and/or Fever >100.1 Albuterol/Ipratropium 3 ml 03/25/24 19:00 03/26/24 07:44 Albuterol/Ipratropium (Duoneb) Rt Anabel 3 Ml Nebu INH 04/24/24 18:59 3 ml Q6HRRT GUNJAN Administration Amlodipine Besylate 5 mg 03/25/24 09:00 03/26/24 08:59 Amlodipine Besylate 5 Mg Tablet PO 04/24/24 08:59 5 mg QDAY GUNJAN Administration Aripiprazole 15 mg 03/24/24 09:00 03/26/24 08:59 Aripiprazole 5 Mg Tablet PO 04/23/24 08:59 15 mg QDAY GUNJAN Administration Buspirone HCl 15 mg 03/24/24 06:00 03/26/24 05:08 Buspirone Hcl 5 Mg Tablet PO 04/23/24 05:59 15 mg TID GUNJAN Administration Dapsone 25 Mg Tablet 0 ea 03/24/24 12:00 03/26/24 08:58 PO 04/23/24 11:59 2 tablet QDAY GUNJAN Administration Dextrose 25 ml 03/23/24 22:54 Dextrose 50%-Water Inj 50 Ml Syringe IV 04/22/24 22:53 Q15MIN PRN BG 50-70 responsive npo pt Dextrose 50 ml 03/23/24 22:54 Dextrose 50%-Water Inj 50 Ml Syringe IV 04/22/24 22:53 Q15MIN PRN BG <50 OR BG <70 & pt unresponsive Escitalopram Oxalate 20 mg 03/24/24 09:00 03/26/24 09:00 Escitalopram Oxalate 10 Mg Tablet PO 04/23/24 08:59 20 mg QDAY GUNJAN Administration Glucagon 1 mg 03/23/24 22:54 Glucagon Inj 1 Mg Vial IM Q15MIN PRN BG <70, and no IV access Heparin Sodium (Porcine) 5,000 unit 03/24/24 09:00 03/26/24 09:01 Heparin Sod Inj 5000 Unit/Ml Vial SC 04/07/24 08:59 5,000 unit Q12HR GUNJAN Administration Hydralazine HCl 10 mg 03/23/24 22:57 Hydralazine Inj 20 Mg/Ml Vial IV 04/22/24 22:56 Q6HR PRN Systolic >180 and HR <70 Cefepime HCl 2 gm/ Sodium 50 mls @ 100 mls/hr 03/25/24 08:21 03/26/24 05:07 Chloride IV 04/01/24 08:20 100 mls/hr Q8HR GUNJAN Administration Vancomycin HCl 250 mls @ 120 mls/hr 03/26/24 10:00 03/26/24 10:41 Vancomycin/Water 1250 Mg Ivpb IV 04/02/24 09:59 120 mls/hr Q24H GUNJAN Administration Insulin Glargine 17 unit 03/26/24 21:00 Insulin Glargine (Lantus) 5 Unit/0.05 Ml (Per 5 Units) SC 04/25/24 20:59 HS GUNJAN Insulin Human Lispro 0 unit 03/25/24 11:30 03/26/24 07:40 Insulin Lispro (Admelog) 1 Unit/0.01 Ml Unit SC 04/24/24 11:29 4 unit AC GUNJAN Administration Protocol Labetalol HCl 10 mg 03/23/24 22:57 Labetalol Inj 5 Mg/Ml Vial 20 Ml IVP 04/22/24 22:56 Q6HR PRN Systolic >180 and HR >70 Levalbuterol HCl 0.63 mg 03/23/24 22:55 03/24/24 07:23 Levalbuterol Rt 0.63 Mg/3 Ml Nebu INH 04/22/24 22:54 0.63 mg Q8HR PRN Administration WHEEZING Levothyroxine Sodium 100 mcg 03/24/24 06:00 03/26/24 05:08 Levothyroxine Sodium 100 Mcg Tablet PO 04/23/24 05:59 100 mcg ACBR GUNJAN Administration Lisinopril 5 mg 03/24/24 09:00 03/24/24 09:25 Lisinopril 2.5 Mg Tablet PO 04/23/24 08:59 5 mg QDAY GUNJAN Administration Metronidazole 500 mg 03/25/24 08:30 03/26/24 05:08 Metronidazole 250 Mg Tablet PO 04/01/24 08:29 500 mg Q8HR GUNJAN Administration Ondansetron HCl 4 mg 03/23/24 22:50 Ondansetron Inj 2 Mg/Ml Inj 2 Ml IV 04/22/24 22:49 Q6H PRN NAUSEA OR VOMITING Protocol Pharmacy Consult 1 each 03/25/24 09:00 Vancomycin Pharmacy To Dose 1 Each Each IV 04/24/24 08:59 QDAY PRN CONSULT Sennosides 1 tab 03/24/24 09:00 03/26/24 09:00 Senna Tablet PO 04/23/24 08:59 Not Given QDAY GUNJAN Protocol Sodium Chloride 5 ml 03/26/24 13:00 Sodium Chloride Rt 10% 15 Ml Nebu INH 04/25/24 12:59 Q6HRRT GUNJAN Plan In summary: 59-year-old male with PMHx of T1DM, HTN, HLD, BRIGETTE/MDD, admitted for acute hypoxic respiratory failure in settings of pneumonia. Continued on ANTIBIOTICS and breathing treatment. Oxygen demand increased overnight, currently on 30 L high flow with 55% FiO2, satting in mid 90s. Continued on CEFEPIME and FLAGYL. Afebrile, leukocytosis resolved. Acute hypoxic respiratory failure 2/2 [facility] pneumonia Lactic acidosis (resolved) Recently completed outpatient ANTIBIOTICS for URI. Initially improved however has had new SOB for 9 days. Likely related to sick contact (grandchild with URI). Show ABG showed pCO2 52, pH 7.45. Completed METHYLPREDNISOLONE x 2 in ED. Originally started on CEFTRIAXONE/AZITHROMYCIN. We switched to CEFEPIME and Metro due to increased oxygen demand. Continued on high flow, down from 75% to 55% FiO2. Leukocytosis resolved. Continued afebrile. No growth on culture. COVID and RSV PCR negative. Cocci IgM negative. MRSA swab negative. VANCOMYCIN discontinued. ? Continue CEFEPIME 2 mg q.8h. (03/25 to [present]) ? Continue METRONIDAZOLE 500 mg q.8h. (03/25 to [present]) ? Continue DuoNebs ? Continue SODIUM CHLORIDE Nebs with RT ? Pending sputum/blood culture, Legionella, cocci IgG Vasovagal syncope Endorsed 2 episodes of syncope in settings of pneumonia. Most likely related to dehydration. No concerning symptoms for cardiac causes such as chest pain, palpitations, abnormal EKG findings. Likely stroke, no focal deficit. Currently asymptomatic. Less likely metabolic abnormalities based on CMP. ? Continue to monitor ? Physical therapy IDDM type I Well-controlled, A1c 5.5 from October 2023. GLUCOSE controlled with current regimen ? Continue glargine 17 units HS ? INSULIN sliding scale ? Accu-Cheks LETICIA (resolved) Likely prerenal 2/2 dehydration. Admission CR 1.4, resolved with resuscitation. ? Started 500 cc NS one-time ? Renally dose meds, avoid overdiuresis and NEPHROTOXINS Hyperkalemia (resolved) Admission potassium 5.7 in setting of LETICIA versus dehydration. No EKG changes. S/p KAYEXALATE 15 mg x 1 ? Daily CMP Iron deficiency anemia Normocytic anemia with Hgb 10.9. No signs of active bleeding. Low iron storage labs. B12 WNL. ? Consider starting FERROUS SULFATE outpatient once infection resolved ? Pending folate level Hypertension Currently normotensive ? Continue home AMLODIPINE 5 mg daily ? Holding home LISINOPRIL 2/2 LETICIA Hypothyroidism ? Continued home LEVOTHYROXINE 100 mcg AC BR Generalized anxiety disorder/Depression ? Continued home ABILIFY, ESCITALOPRAM, BUSPAR Health maintenance Diet: CHO consistent GI prophylaxis: Not indicated DVT prophylaxis: HEPARIN subcu Antibiotics: CEFTRIAXONE, AZITHROMYCIN CODE STATUS: Full code Disposition: Pending improvement in oxygen need Patient case was discussed with attending, Dr. aTz Tipton DO and senior resident Dr. Macdonald. Che Ahmadi DO PGYI
[2024-03-26] MEDS: SODIUM CHLORIDE RT 10% 15 ML NEBU 5 ML INH (19:37)
[2024-03-26] MEDS: INSULIN GLARGINE (Lantus) 5 UNIT/0.05 ML (PER 5 UNITS) 17 UNIT SC (21:10)
[2024-03-27] VITALS (14 sets, daily range): BP systolic 133–147; BP diastolic 61–68; PULSE 75–103; RESP 12–20; TEMP 36.1–36.6; O2SAT 90–95; BMI 26.9; BMI 26.6
[2024-03-27] MEDS: SODIUM CHLORIDE RT 10% 15 ML NEBU 5 ML INH ×5 (01:22→18:12)
[2024-03-27] MEDS: ALBUTEROL/IPRATROPIUM (Duoneb) RT SOL 3 ML NEBU INH ×4 (01:22→18:13)
[2024-03-27 05:03] LABS: Basophils % (Auto) 0 % (0-2.5); Eosinophils # (Auto) 0.4 Thou/mm3 (0.0-0.5); Eosinophils % (Auto) 3 % (0-10); Hemoglobin 9.9 g/dL (13.5-16.0); Immature Granulocytes % (Auto) 1 % (0-0); Immature Granulocytes Auto 0.09 Thou/mm3 (0.00-0.00); Lymphocytes # (Auto) 1.7 Thou/mm3 (1.0-4.8); Lymphocytes % (Auto) 14 % (10-50); Mean Corpuscular HGB Conc 34.1 g/dl (31.0-37.0); Mean Corpuscular Hemoglobin 33.7 pg (25.0-35.0); Mean Corpuscular Volume 99 fL (80-100); Monocytes % (Auto) 9 % (0-12); Neutrophils # (Auto) 8.9 Thou/mm3 (1.8-7.7); Neutrophils % (Auto) 73 % (37-80); Nucleated Red Blood Cell % 0 /100 WBC (0); Platelet Count 326 Thou/mm3 (140-440); RDW Standard Deviation 46.9 fL (35.1-43.9); Red Blood Count 2.94 Miln/mm3 (4.50-5.90); White Blood Count 12.2 Thou/mm3 (3.8-10.6)
[2024-03-27] MEDS: BusPIRone HCL 5 MG TABLET 15 MG PO ×3 (05:13→21:36)
[2024-03-27] MEDS: LEVOTHYROXINE SODIUM 100 MCG TABLET PO (05:13)
[2024-03-27] MEDS: metroNIDAZOLE 250 MG TABLET 500 MG PO ×3 (05:33→21:36)
[2024-03-27] MEDS: CEFEPIME INJ 2 GM in SODIUM CHLORIDE 0.9% (P) 50 ML IV ×3 (05:33→21:36)
[2024-03-27 05:40] LABS: Alanine Aminotransferase 17 U/L (10-49); Albumin, Serum 4.2 gm/dL (3.4-4.8); Anion Gap 7 (7-16); Aspartate Amino Transferase 14 U/L (0-34); BUN/Creatinine Ratio 17 Ratio (12-20); Bilirubin,Total 1.3 mg/dL (0.3-1.2); Blood Urea Nitrogen 20 mg/dL (9-23); Carbon Dioxide 27.9 mMol/L (20.0-31.0); Chloride 97 mMol/L (98-107); Creatinine (Component) 1.2 mg/dL (0.6-1.3); Estimated Creatinine Clearance 58.3 mL/min (>60); Globulin 2.1 gm/dL (2.3-3.5); Glucose 301 mg/dL (74-106); Osmolality,Calculated 278 (275-295); Potassium 4.4 mMol/L (3.4-5.1); Sodium 132 mMol/L (136-145); Total Protein 6.3 gm/dL (5.7-8.2); eGFR > 60 See Note
[2024-03-27 05:41] LABS: Alkaline Phosphatase 90 U/L (46-116)
[2024-03-27] MEDS: INSULIN LISPRO (AdmeLOG) 1 UNIT/0.01 ML UNIT SC ×3 (07:38→16:36)
[2024-03-27] MEDS: DAPSONE 25 MG TABLET PO (09:00)
[2024-03-27] MEDS: SENNA TABLET 1 TAB PO (09:01)
[2024-03-27] MEDS: HEPARIN SOD INJ 5000 UNIT/ML VIAL SC ×2 (09:01→20:15)
[2024-03-27] MEDS: ARIPiprazole 5 MG TABLET 15 MG PO (09:01)
[2024-03-27] MEDS: ESCITALOPRAM OXALATE 10 MG TABLET 20 MG PO (09:01)
[2024-03-27] MEDS: amLODIPine BESYLATE 5 MG TABLET PO (09:02)
[2024-03-27 09:16] LABS: Base Excess, Venous 4 (-3-3); O2 Saturation, Venous 72 % (96-97); PCO2, Venous 41 mmHg (36-56); PO2, Venous 39 mmHg (15-58); pH, Venous 7.45 (7.33-7.66)
--- NOTE | 2024-03-27 11:08 | ECHO_ITS ---
Transthoracic Echo Report Ht (in): 66 Wt (lb): 166 Exam Location: [facility] Status: Inpatient Assistant County Attorney: Vandana Vasquez Indications: Procedure Performed: BP: 138 / 72 HR: 80 Rhythm: Sinus Technical Quality: Technically difficult study MEASUREMENTS (Male / Female) Normal Values 2D ECHO LV Diastolic Diameter PLAX 4.0 cm 4.2 - 5.9 / 3.9 - 5.3 cm LV Systolic Diameter PLAX 2.7 cm IVS Diastolic Thickness 0.8 cm 0.6 - 1.0 / 0.6 - 0.9 cm LVPW Diastolic Thickness 0.8 cm 0.6 - 1.0 / 0.6 - 0.9 cm LV Relative Wall Thickness 0.4 LVOT Diameter 1.9 cm LA Volume Index 17.0 cm?/m? 16 - 28 cm?/m? Ascending Aorta Diameter 3.0 cm M-MODE Aortic Root Diameter MM 2.7 cm LA Systolic Diameter MM 3.2 cm LA Ao Ratio MM 1.2 AV Cusp Separation MM 1.8 cm DOPPLER AV Peak Velocity 204.7 cm/s AV Peak Gradient 16.8 mmHg AV Mean Gradient 8.5 mmHg AV Velocity Time Integral 34.1 cm LVOT Peak Velocity 115.0 cm/s LVOT Peak Gradient 5.3 mmHg LVOT Velocity Time Integral 27.5 cm LVOT Cardiac Index 3303.5 cm?/min?m? AV Area Cont Eq vti 2.3 cm? AV Area Cont Eq pk 1.6 cm? MV Peak Velocity 94.7 cm/s MV Peak Gradient 3.6 mmHg MV Mean Velocity 56.7 cm/s MV Mean Gradient 2.0 mmHg MV Area PHT 3.1 cm? Mitral E Point Velocity 80.5 cm/s Mitral A Point Velocity 101.0 cm/s Mitral E to A Ratio 0.8 LV E' Lateral Velocity 10.8 cm/s Mitral E to LV E' Lateral Ratio 7.5 LV E' Septal Velocity 8.2 cm/s Mitral E to LV E' Septal Ratio 9.9 FINDINGS Left Ventricle Normal left ventricular size, wall thickness, systolic function with no obvious regional wall motion abnormalities. The ejection fraction is visually estimated at 60-65 %. Right Ventricle The right ventricle is normal in size and systolic function. Left Atrium The left atrium is normal by two-dimensional, color flow and Doppler imaging with no structural abnormalities, no thrombus formation present. Right Atrium The right atrium is normal by two-dimensional imaging, color flow and Doppler imaging with no struct ural abnormalities, no thrombus formation present. Atrial Septum The interatrial septum appears normal with no evidence of a shunt. Aorta The aorta is normal by two-dimensional, color flow and Doppler interrogation. Mitral Valve The mitral valve is normal by two-dimensional, color flow and Doppler interrogation. There is trace mitral valve regurgitation. Aortic Valve The aortic valve is trileaflet. Mild sclerosis without stenosis. There is trace aortic valve regurgi tation. Tricuspid Valve The tricuspid valve is normal by two-dimensional, color flow and Doppler interrogation. There is tra ce tricuspid valve regurgitation. Pulmonic Valve The pulmonic valve is not well visualized. There is no significant pulmonic valve regurgitation. Vessels The pulmonary artery appears normal. The inferior vena cava pulmonary and hepatic veins appear servando l. Pericardium The pericardium is normal by two-dimensional imaging. There is no significant pericardial effusion. CONCLUSIONS Normal LV size and function. Estimated EF 60-65% Normal RV size and function. Trace MR,AI, TR. Mild AV sclerosis without stenosis. Iman Balderas (Electronically Signed) Final Date: 28 March 2024 12:12
[2024-03-27] MEDS: INSULIN LISPRO (AdmeLOG) 1 UNIT/0.01 ML UNIT 3 UNIT SC ×2 (11:19→16:35)
--- NOTE | 2024-03-27 13:11 | ESPR_ITS ---
Documentation for date of: 03/27/24 Subjective Subjective Interval history: No overnight events. Reports feeling okay, no shortness of breath. Able to produce more sputum today. Tolerating oral intake without nausea or vomiting or constipation. Denies fever, chills, headaches, chest pain, sob, GI or urinary symptoms. Exam Vital Signs Temp Pulse Resp BP Pulse Ox O2 Del Method O2 Flow Rate 97.8 F 81 13 134/68 H 93 L High Flow Nasal Cannula 18 03/27/24 12:00 03/27/24 12:36 03/27/24 12:36 03/27/24 12:00 03/27/24 12:36 03/27/24 12:00 03/27/24 12:36 FiO2 50 03/27/24 12:36 Narrative Exam GENERAL: Normal appearing middle-aged male, no apparent distress, on 30 L high flow 70% FiO2 HEENT: NCAT.?CABRERA. Oral mucosa is moist. Patent Nares NECK: Supple, nontender, no thyromegaly, no meningismus, no JVD, no step offs CARDIOVASCULAR: RRR, no m/g/r LUNGS: Improved bilateral wheezing, slight rhonchi bibasilarly. No rales. Symmetrical chest rise. ABDOMEN: Soft, flat, nontender. No guarding/rebound tenderness/masses. +BS EXTREMITIES: Nontender.? No edema/cyanosis.?Moves all 4 extremities well, with full ROM and good CSM. SKIN: Warm and dry, no jaundice/rashes. MSK: No lumbar or midline, no CVA, no paraspinal muscle spasm or tenderness. NEURO: Cogwheel rigidity of bilateral upper extremity noted. No other focal neurologic deficits. PSYCHIATRIC: Normal mood and affect, cooperative, no SI or HI or hallucinations. Objective Labs 03/27/24 04:39 03/27/24 04:39 Labs: Laboratory Results - last 24 hr 03/27/24 03/27/24 04:39 09:05 WBC 12.2 H D RBC 2.94 L Hgb 9.9 L Hct 29.0 L MCV 99 MCH 33.7 MCHC 34.1 RDW Std Deviation 46.9 H Plt Count 326 D Neut % (Auto) 73 Lymph % (Auto) 14 [place] % (Auto) 9 Eos % (Auto) 3 Baso % (Auto) 0 Neut # (Auto) 8.9 H Lymph # (Auto) 1.7 [place] # (Auto) 1.0 H Eos # (Auto) 0.4 Baso # (Auto) 0.0 Immature Gran # (Auto) 0.09 H Absolute Nucleated RBC 0.00 Immature Gran % 1 H Nucleated RBC % 0 VBG pH 7.45 VBG pCO2 41 VBG pO2 39 VBG O2 Sat (Nathaniel) 72 L VBG Base Excess 4 H Sodium 132 L Potassium 4.4 Chloride 97 L Carbon Dioxide 27.9 Anion Gap 7 BUN 20 Creatinine 1.2 Estim Creat Clear Calc 58.3 L eGFR > 60 BUN/Creatinine Ratio 17 Glucose 301 H D Calculated Osmolality 278 Calcium 9.0 Corrected Calcium 9.0 Phosphorus 4.0 Magnesium 2.0 Total Bilirubin 1.3 H AST 14 ALT 17 Alkaline Phosphatase 90 D Total Protein 6.3 Albumin 4.2 Globulin 2.1 L Albumin/Globulin Ratio 2.0 ABG Interpretation ABG results: 03/23/24 03/27/24 20:16 09:05 ABG pH 7.45 ABG pCO2 35 ABG pO2 52 L* ABG HCO3 24 ABG O2 Saturation 85 L ABG Base Excess 1 VBG pH 7.45 VBG pCO2 41 VBG pO2 39 VBG Base Excess 4 H Quality Measures Quality Measures sepsis Current suspected stage: ruled out Possible source: unknown Blood cultures ordered: yes Antibiotic ordered: Yes Assessment & Plan Assessment Current Active Medications: Generic Name Dose Route Start Last Admin Trade Name Freq PRN Reason Stop Dose Admin Acetaminophen 650 mg 03/23/24 22:50 Acetaminophen 325 Mg Tablet PO 04/22/24 22:49 Q6H PRN Pain 1-3 and/or Fever >100.1 Albuterol/Ipratropium 3 ml 03/25/24 19:00 03/27/24 12:32 Albuterol/Ipratropium (Duoneb) Rt Anabel 3 Ml Nebu INH 04/24/24 18:59 3 ml Q6HRRT GUNJAN Administration Amlodipine Besylate 5 mg 03/25/24 09:00 03/27/24 09:02 Amlodipine Besylate 5 Mg Tablet PO 04/24/24 08:59 5 mg QDAY GUNJAN Administration Aripiprazole 15 mg 03/24/24 09:00 03/27/24 09:01 Aripiprazole 5 Mg Tablet PO 04/23/24 08:59 15 mg QDAY GUNJAN Administration Buspirone HCl 15 mg 03/24/24 06:00 03/27/24 05:13 Buspirone Hcl 5 Mg Tablet PO 04/23/24 05:59 15 mg TID GUNJAN Administration Dapsone 25 Mg Tablet 0 ea 03/24/24 12:00 03/27/24 09:00 PO 04/23/24 11:59 25 tablet QDAY GUNJAN Administration Dextrose 25 ml 03/23/24 22:54 Dextrose 50%-Water Inj 50 Ml Syringe IV 04/22/24 22:53 Q15MIN PRN BG 50-70 responsive npo pt Dextrose 50 ml 03/23/24 22:54 Dextrose 50%-Water Inj 50 Ml Syringe IV 04/22/24 22:53 Q15MIN PRN BG <50 OR BG <70 & pt unresponsive Escitalopram Oxalate 20 mg 03/24/24 09:00 03/27/24 09:01 Escitalopram Oxalate 10 Mg Tablet PO 04/23/24 08:59 20 mg QDAY GUNJAN Administration Glucagon 1 mg 03/23/24 22:54 Glucagon Inj 1 Mg Vial IM Q15MIN PRN BG <70, and no IV access Guaifenesin 2 tab 03/27/24 21:00 Guaifenesin/P-Ephed Tablet PO 04/26/24 20:59 BID GUNJAN Heparin Sodium (Porcine) 5,000 unit 03/24/24 09:00 03/27/24 09:01 Heparin Sod Inj 5000 Unit/Ml Vial SC 04/07/24 08:59 5,000 unit Q12HR GUNJAN Administration Hydralazine HCl 10 mg 03/23/24 22:57 Hydralazine Inj 20 Mg/Ml Vial IV 04/22/24 22:56 Q6HR PRN Systolic >180 and HR <70 Cefepime HCl 2 gm/ Sodium 50 mls @ 100 mls/hr 03/25/24 08:21 03/27/24 05:33 Chloride IV 04/01/24 08:20 100 mls/hr Q8HR GUNJAN Administration Insulin Glargine 20 unit 03/27/24 21:00 Insulin Glargine (Lantus) 5 Unit/0.05 Ml (Per 5 Units) SC 04/26/24 20:59 HS [facility] Insulin Human Lispro 0 unit 03/25/24 11:30 03/27/24 11:20 Insulin Lispro (Admelog) 1 Unit/0.01 Ml Unit SC 04/24/24 11:29 4 unit AC GUNJAN Administration Protocol Insulin Human Lispro 3 unit 03/27/24 12:00 03/27/24 11:19 Insulin Lispro (Admelog) 1 Unit/0.01 Ml Unit SC 04/26/24 11:59 3 unit TIDWM GUNJAN Administration Labetalol HCl 10 mg 03/23/24 22:57 Labetalol Inj 5 Mg/Ml Vial 20 Ml IVP 04/22/24 22:56 Q6HR PRN Systolic >180 and HR >70 Levalbuterol HCl 0.63 mg 03/23/24 22:55 03/24/24 07:23 Levalbuterol Rt 0.63 Mg/3 Ml Nebu INH 04/22/24 22:54 0.63 mg Q8HR PRN Administration WHEEZING Levothyroxine Sodium 100 mcg 03/24/24 06:00 03/27/24 05:13 Levothyroxine Sodium 100 Mcg Tablet PO 04/23/24 05:59 100 mcg ACBR GUNJAN Administration Lisinopril 5 mg 03/24/24 09:00 03/24/24 09:25 Lisinopril 2.5 Mg Tablet PO 04/23/24 08:59 5 mg QDAY GUNJAN Administration Metronidazole 500 mg 03/25/24 08:30 03/27/24 05:33 Metronidazole 250 Mg Tablet PO 04/01/24 08:29 500 mg Q8HR GUNJAN Administration Ondansetron HCl 4 mg 03/23/24 22:50 Ondansetron Inj 2 Mg/Ml Inj 2 Ml IV 04/22/24 22:49 Q6H PRN NAUSEA OR VOMITING Protocol Sennosides 1 tab 03/24/24 09:00 03/27/24 09:01 Senna Tablet PO 04/23/24 08:59 1 tab QDAY GUNJAN Administration Protocol Sodium Chloride 5 ml 03/26/24 13:00 03/27/24 12:32 Sodium Chloride Rt 10% 15 Ml Nebu INH 04/25/24 12:59 5 ml Q6HRRT GUNJAN Administration Plan In summary: 59-year-old male with PMHx of T1DM, HTN, HLD, BRIGETTE/MDD, admitted for acute hypoxic respiratory failure in settings of pneumonia. Continued on ANTIBIOTICS and breathing treatment. Oxygen demand increased overnight, currently on 30 L high flow with 55% FiO2, satting in mid . Continued on CEFEPIME and FLAGYL. Afebrile, WBC 12. Pending echocardiogram to rule out cardiac causes of hypoxemia. Acute hypoxic respiratory failure 2/2 [facility] pneumonia Lactic acidosis (resolved) Recently completed outpatient ANTIBIOTICS for URI. Initially improved however has had new SOB for 9 days. Likely related to sick contact (grandchild with URI). Show ABG showed pCO2 52, pH 7.45. Completed METHYLPREDNISOLONE x 2 in ED. Originally started on CEFTRIAXONE/AZITHROMYCIN. We switched to CEFEPIME and Metro due to increased oxygen demand. Continued on high flow, down from 75% to 55% FiO2. WBC 12. Continued afebrile. No growth on culture. COVID and RSV PCR negative. Cocci IgM negative. MRSA swab negative. VANCOMYCIN discontinued. Continue off high flow, will give LASIX one-time and follow-up with echo to rule out cardiac causes of hypoxemia. ? Continue CEFEPIME 2 mg q.8h. (03/25 to [present]) ? Continue METRONIDAZOLE 500 mg q.8h. (03/25 to [present]) ? Continue DuoNebs ? Continue SODIUM CHLORIDE Nebs with RT ? Given LASIX 40 mg p.o. x 1 ? Pending echocardiogram ? Pending Legionella, cocci IgG Vasovagal syncope Endorsed 2 episodes of syncope in settings of pneumonia. Most likely related to dehydration. No concerning symptoms for cardiac causes such as chest pain, palpitations, abnormal EKG findings. Likely stroke, no focal deficit. Currently asymptomatic. Less likely metabolic abnormalities based on CMP. ? Continue to monitor ? Physical therapy IDDM type I Well-controlled, A1c 5.5 from October 2023. GLUCOSE 300s this AM. Insulin adjusted as below. ? Continue glargine 20 units HS ? Continue LISPRO 3 unit TID ? INSULIN sliding scale ? Accu-Cheks LETICIA (resolved) Likely prerenal 2/2 dehydration. Admission CR 1.4, resolved with resuscitation. ? Started 500 cc NS one-time ? Renally dose meds, avoid overdiuresis and NEPHROTOXINS Hyperkalemia (resolved) Admission potassium 5.7 in setting of LETICIA versus dehydration. No EKG changes. S/p KAYEXALATE 15 mg x 1 ? Daily CMP Iron deficiency anemia Normocytic anemia with Hgb 10.9. No signs of active bleeding. Low iron storage labs. B12 WNL. ? Consider starting FERROUS SULFATE outpatient once infection resolved ? Pending folate level Hypertension Currently normotensive ? Continue home AMLODIPINE 5 mg daily ? Holding home LISINOPRIL 2/2 LETICIA Hypothyroidism ? Continued home LEVOTHYROXINE 100 mcg AC BR Generalized anxiety disorder/Depression ? Continued home ABILIFY, ESCITALOPRAM, BUSPAR Health maintenance Diet: CHO consistent GI prophylaxis: Not indicated DVT prophylaxis: HEPARIN subcu Antibiotics: CEFTRIAXONE, AZITHROMYCIN CODE STATUS: Full code Disposition: Pending improvement in oxygen need Patient case was discussed with attending, Dr. Taz Tipton DO and senior resident Dr. Macdonald. Che Ahmadi DO PGYI Attending Provider Attestation/Addendum I have discussed and was present for the essential components of the history, physical examination, diagnosis, and treatment plan with the resident. I agree with the patient's care as documented by the resident and amended herein by me. Jono Tipton DO. Patient seen and evaluated this AM. Vital signs stable, patient afebrile and overnight, patient remains on high flow nasal cannula, 20/55, SpO2 from 90 to 94%. I/O20 740/1400, blood glucose really elevated this morning 300 however it was noted that the patient was eating outside [facility] last night which may have affected sugars. Significant labs include a WBC which is up trended to 12, BMP largely unremarkable. Will continue IV antibiotics today, will give a spot dose of Lasix 40 mg, we did curbside pulmonology who recommended an echo at this time and to continue current management. Will adjust insulin as needed to optimize blood glucose control and continue to monitor closely. Will also ambulate the patient is much as he can tolerate. Although this document has been carefully reviewed, there may still be some phonetic and other typographical errors. These errors are purely grammatical due to imperfections in the software program and should not be construed in any way to compromise the substance of the patient's medical care during this visit.
[2024-03-27] MEDS: Furosemide 40 MG TABLET PO (14:11)
--- NOTE | 2024-03-27 15:02 | PC.SS ---
Rounding Note: patient remains on high flow oxygen, pending echo and bubble study.
[2024-03-27] MEDS: INSULIN GLARGINE (Lantus) 5 UNIT/0.05 ML (PER 5 UNITS) 20 UNIT SC (20:15)
[2024-03-27] MEDS: guaiFENesin/P-EPHED TABLET 2 TAB PO (20:15)
[2024-03-28] VITALS (11 sets, daily range): BP systolic 126–158; BP diastolic 58–79; PULSE 77–96; RESP 12–28; TEMP 36–36.6; O2SAT 90–98; BMI 26.6
[2024-03-28] MEDS: ALBUTEROL/IPRATROPIUM (Duoneb) RT SOL 3 ML NEBU INH ×4 (01:02→18:22)
[2024-03-28] MEDS: SODIUM CHLORIDE RT 10% 15 ML NEBU 5 ML INH ×2 (01:02→06:40)
[2024-03-28 05:30] LABS: Basophils % (Auto) 0 % (0-2.5); Eosinophils # (Auto) 0.3 Thou/mm3 (0.0-0.5); Eosinophils % (Auto) 3 % (0-10); Hematocrit 29.9 % (41.0-53.0); Hemoglobin 10.3 g/dL (13.5-16.0); Immature Granulocytes % (Auto) 1 % (0-0); Immature Granulocytes Auto 0.08 Thou/mm3 (0.00-0.00); Lymphocytes # (Auto) 1.6 Thou/mm3 (1.0-4.8); Lymphocytes % (Auto) 13 % (10-50); Mean Corpuscular HGB Conc 34.4 g/dl (31.0-37.0); Mean Corpuscular Hemoglobin 34.4 pg (25.0-35.0); Mean Corpuscular Volume 100 fL (80-100); Monocytes # (Auto) 0.7 Thou/mm3 (0.0-0.8); Monocytes % (Auto) 6 % (0-12); Neutrophils % (Auto) 77 % (37-80); Nucleated Red Blood Cell % 0 /100 WBC (0); Platelet Count 332 Thou/mm3 (140-440); RDW Standard Deviation 49.6 fL (35.1-43.9); Red Blood Count 2.99 Miln/mm3 (4.50-5.90); White Blood Count 11.7 Thou/mm3 (3.8-10.6)
[2024-03-28] MEDS: BusPIRone HCL 5 MG TABLET 15 MG PO ×3 (05:30→21:10)
[2024-03-28] MEDS: LEVOTHYROXINE SODIUM 100 MCG TABLET PO (05:30)
[2024-03-28] MEDS: CEFEPIME INJ 2 GM in SODIUM CHLORIDE 0.9% (P) 50 ML IV ×3 (05:30→21:11)
[2024-03-28] MEDS: metroNIDAZOLE 250 MG TABLET 500 MG PO ×3 (05:30→21:10)
[2024-03-28 05:50] LABS: Alanine Aminotransferase 29 U/L (10-49); Alkaline Phosphatase 85 U/L (46-116); Anion Gap 6 (7-16); Aspartate Amino Transferase 36 U/L (0-34); BUN/Creatinine Ratio 17 Ratio (12-20); Bilirubin,Total 1.8 mg/dL (0.3-1.2); Blood Urea Nitrogen 19 mg/dL (9-23); Carbon Dioxide 29.2 mMol/L (20.0-31.0); Chloride 97 mMol/L (98-107); Creatinine (Component) 1.1 mg/dL (0.6-1.3); Estimated Creatinine Clearance 63.6 mL/min (>60); Glucose 261 mg/dL (74-106); Osmolality,Calculated 275 (275-295); Phosphorous 3.4 mg/dL (2.4-5.1); Potassium 4.3 mMol/L (3.4-5.1); Sodium 132 mMol/L (136-145); Total Protein 6.4 gm/dL (5.7-8.2); eGFR > 60 See Note
[2024-03-28 07:00] LABS: Albumin, Serum 4.1 gm/dL (3.4-4.8)
[2024-03-28 07:14] LABS: Albumin/Globulin Ratio 1.8 (1.2-2.2); Globulin 2.3 gm/dL (2.3-3.5)
[2024-03-28] MEDS: INSULIN LISPRO (AdmeLOG) 1 UNIT/0.01 ML UNIT 3 UNIT SC ×3 (07:36→16:35)
[2024-03-28] MEDS: INSULIN LISPRO (AdmeLOG) 1 UNIT/0.01 ML UNIT SC ×3 (07:36→16:36)
[2024-03-28] MEDS: guaiFENesin/P-EPHED TABLET 2 TAB PO ×2 (08:46→21:10)
[2024-03-28] MEDS: HEPARIN SOD INJ 5000 UNIT/ML VIAL SC ×2 (08:46→21:11)
[2024-03-28] MEDS: amLODIPine BESYLATE 5 MG TABLET PO (08:47)
[2024-03-28] MEDS: ESCITALOPRAM OXALATE 10 MG TABLET 20 MG PO (08:48)
[2024-03-28] MEDS: ARIPiprazole 5 MG TABLET 15 MG PO (08:48)
[2024-03-28] MEDS: SENNA TABLET 1 TAB PO (08:48)
[2024-03-28] MEDS: DAPSONE 25 MG TABLET PO (08:49)
--- NOTE | 2024-03-28 11:39 | PC.SS ---
rounding note: Patient remains on high flow 02. Actively weaning patient down. D/c plan: return home with spouse
[2024-03-28] MEDS: FERROUS SULF 325 MG TABLET PO (12:43)
--- NOTE | 2024-03-28 16:18 | ESPR_ITS ---
Documentation for date of: 03/28/24 Subjective Subjective Interval history: No acute overnight events. Downgraded to 6 L nasal cannula. Feeling better, improved cough, improved shortness of breath. Denies fever, chills, headaches, chest pain, cough or shortness of breath, GI or urinary symptoms. Exam Vital Signs Temp Pulse Resp BP Pulse Ox O2 Del Method O2 Flow Rate 96.8 F 87 20 150/72 H 92 L Nasal Cannula 6 03/28/24 12:00 03/28/24 12:11 03/28/24 12:11 03/28/24 12:00 03/28/24 12:11 03/28/24 12:00 03/28/24 12:11 FiO2 50 03/28/24 06:43 Narrative Exam GENERAL: Normal appearing middle-aged male, no apparent distress, on 30 L high flow 70% FiO2 HEENT: NCAT.?CABRERA. Oral mucosa is moist. Patent Nares NECK: Supple, nontender, no thyromegaly, no meningismus, no JVD, no step offs CARDIOVASCULAR: RRR, no m/g/r LUNGS: Improved bilateral wheezing, slight rhonchi bibasilarly. No rales. Symmetrical chest rise. ABDOMEN: Soft, flat, nontender. No guarding/rebound tenderness/masses. +BS EXTREMITIES: Nontender.? No edema/cyanosis.?Moves all 4 extremities well, with full ROM and good CSM. SKIN: Warm and dry, no jaundice/rashes. MSK: No lumbar or midline, no CVA, no paraspinal muscle spasm or tenderness. NEURO: Cogwheel rigidity of bilateral upper extremity noted. No other focal neurologic deficits. PSYCHIATRIC: Normal mood and affect, cooperative, no SI or HI or hallucinations. Objective Labs 03/28/24 04:57 03/28/24 04:57 Labs: Laboratory Results - last 24 hr 03/28/24 04:57 WBC 11.7 H RBC 2.99 L Hgb 10.3 L Hct 29.9 L MCV 100 MCH 34.4 MCHC 34.4 RDW Std Deviation 49.6 H Plt Count 332 Neut % (Auto) 77 Lymph % (Auto) 13 [place] % (Auto) 6 Eos % (Auto) 3 Baso % (Auto) 0 Neut # (Auto) 9.0 H Lymph # (Auto) 1.6 [place] # (Auto) 0.7 Eos # (Auto) 0.3 Baso # (Auto) 0.0 Immature Gran # (Auto) 0.08 H Absolute Nucleated RBC 0.00 Immature Gran % 1 H Nucleated RBC % 0 Sodium 132 L Potassium 4.3 Chloride 97 L Carbon Dioxide 29.2 Anion Gap 6 L BUN 19 Creatinine 1.1 Estim Creat Clear Calc 63.6 eGFR > 60 BUN/Creatinine Ratio 17 Glucose 261 H Calculated Osmolality 275 Calcium 9.0 Corrected Calcium 9.0 Phosphorus 3.4 Magnesium 2.0 Total Bilirubin 1.8 H D AST 36 H ALT 29 Alkaline Phosphatase 85 Total Protein 6.4 Albumin 4.1 Globulin 2.3 Albumin/Globulin Ratio 1.8 ABG Interpretation ABG results: 03/23/24 03/27/24 20:16 09:05 ABG pH 7.45 ABG pCO2 35 ABG pO2 52 L* ABG HCO3 24 ABG O2 Saturation 85 L ABG Base Excess 1 VBG pH 7.45 VBG pCO2 41 VBG pO2 39 VBG Base Excess 4 H Quality Measures Quality Measures sepsis Current suspected stage: ruled out Possible source: unknown Blood cultures ordered: yes Antibiotic ordered: Yes Assessment & Plan Assessment Current Active Medications: Generic Name Dose Route Start Last Admin Trade Name Freq PRN Reason Stop Dose Admin Acetaminophen 650 mg 03/23/24 22:50 Acetaminophen 325 Mg Tablet PO 04/22/24 22:49 Q6H PRN Pain 1-3 and/or Fever >100.1 Albuterol/Ipratropium 3 ml 03/25/24 19:00 03/28/24 12:11 Albuterol/Ipratropium (Duoneb) Rt Anabel 3 Ml Nebu INH 04/24/24 18:59 3 ml Q6HRRT GUNJAN Administration Amlodipine Besylate 5 mg 03/25/24 09:00 03/28/24 08:47 Amlodipine Besylate 5 Mg Tablet PO 04/24/24 08:59 5 mg QDAY GUNJAN Administration Aripiprazole 15 mg 03/24/24 09:00 03/28/24 08:48 Aripiprazole 5 Mg Tablet PO 04/23/24 08:59 15 mg QDAY GUNJAN Administration Buspirone HCl 15 mg 03/24/24 06:00 03/28/24 14:54 Buspirone Hcl 5 Mg Tablet PO 04/23/24 05:59 15 mg TID GUNJAN Administration Dapsone 25 Mg Tablet 0 ea 03/24/24 12:00 03/28/24 08:49 PO 04/23/24 11:59 50 tablet QDAY GUNJAN Administration Dextrose 25 ml 03/23/24 22:54 Dextrose 50%-Water Inj 50 Ml Syringe IV 04/22/24 22:53 Q15MIN PRN BG 50-70 responsive npo pt Dextrose 50 ml 03/23/24 22:54 Dextrose 50%-Water Inj 50 Ml Syringe IV 04/22/24 22:53 Q15MIN PRN BG <50 OR BG <70 & pt unresponsive Escitalopram Oxalate 20 mg 03/24/24 09:00 03/28/24 08:48 Escitalopram Oxalate 10 Mg Tablet PO 04/23/24 08:59 20 mg QDAY GUNJAN Administration Ferrous Sulfate 325 mg 03/28/24 12:30 03/28/24 12:43 Ferrous Sulf 325 Mg Tablet PO 04/27/24 12:29 325 mg QOD GUNJAN Administration Glucagon 1 mg 03/23/24 22:54 Glucagon Inj 1 Mg Vial IM Q15MIN PRN BG <70, and no IV access Guaifenesin 2 tab 03/27/24 21:00 03/28/24 08:46 Guaifenesin/P-Ephed Tablet PO 04/26/24 20:59 2 tab BID GUNJAN Administration Heparin Sodium (Porcine) 5,000 unit 03/24/24 09:00 03/28/24 08:46 Heparin Sod Inj 5000 Unit/Ml Vial SC 04/07/24 08:59 5,000 unit Q12HR GUNJAN Administration Hydralazine HCl 10 mg 03/23/24 22:57 Hydralazine Inj 20 Mg/Ml Vial IV 04/22/24 22:56 Q6HR PRN Systolic >180 and HR <70 Cefepime HCl 2 gm/ Sodium 50 mls @ 100 mls/hr 03/25/24 08:21 03/28/24 14:54 Chloride IV 04/01/24 08:20 100 mls/hr Q8HR GUNJAN Administration Insulin Glargine 20 unit 03/27/24 21:00 03/27/24 20:15 Insulin Glargine (Lantus) 5 Unit/0.05 Ml (Per 5 Units) SC 04/26/24 20:59 20 unit HS GUNJAN Administration Insulin Human Lispro 0 unit 03/25/24 11:30 03/28/24 11:32 Insulin Lispro (Admelog) 1 Unit/0.01 Ml Unit SC 04/24/24 11:29 6 unit AC GUNJAN Administration Protocol Insulin Human Lispro 3 unit 03/27/24 12:00 03/28/24 11:32 Insulin Lispro (Admelog) 1 Unit/0.01 Ml Unit SC 04/26/24 11:59 3 unit TIDWM GUNJAN Administration Labetalol HCl 10 mg 03/23/24 22:57 Labetalol Inj 5 Mg/Ml Vial 20 Ml IVP 04/22/24 22:56 Q6HR PRN Systolic >180 and HR >70 Levalbuterol HCl 0.63 mg 03/23/24 22:55 03/24/24 07:23 Levalbuterol Rt 0.63 Mg/3 Ml Nebu INH 04/22/24 22:54 0.63 mg Q8HR PRN Administration WHEEZING Levothyroxine Sodium 100 mcg 03/24/24 06:00 03/28/24 05:30 Levothyroxine Sodium 100 Mcg Tablet PO 04/23/24 05:59 100 mcg ACBR GUNJAN Administration Lisinopril 5 mg 03/24/24 09:00 03/24/24 09:25 Lisinopril 2.5 Mg Tablet PO 04/23/24 08:59 5 mg QDAY GUNJAN Administration Metronidazole 500 mg 03/25/24 08:30 03/28/24 14:54 Metronidazole 250 Mg Tablet PO 04/01/24 08:29 500 mg Q8HR GUNJAN Administration Ondansetron HCl 4 mg 03/23/24 22:50 Ondansetron Inj 2 Mg/Ml Inj 2 Ml IV 04/22/24 22:49 Q6H PRN NAUSEA OR VOMITING Protocol Sennosides 1 tab 03/24/24 09:00 03/28/24 08:48 Senna Tablet PO 04/23/24 08:59 1 tab QDAY GUNJAN Administration Protocol Plan In summary: 59-year-old male with PMHx of T1DM, HTN, HLD, BRIGETTE/MDD, admitted for acute hypoxic respiratory failure in settings of pneumonia. Continued on ANTIBIOTICS and breathing treatment. Continued on CEFEPIME and FLAGYL. Afebrile, WBC 11.7. Echocardiogram normal ejection fraction no PFO. Symptoms improved after 1 dose of LASIX. Wean off oxygen, down from high flow to 6 L NC, satting mid 90s, no SOB. Will likely discharge tomorrow 1/3 if afebrile to downgrade to 4 L NC. Patient stated has home oxygen supplement prescribed by PCP recently. Acute hypoxic respiratory failure 2/2 [facility] pneumonia Lactic acidosis (resolved) Recently completed outpatient ANTIBIOTICS for URI. Initially improved however has had new SOB for 9 days. Likely related to sick contact (grandchild with URI). Show ABG showed pCO2 52, pH 7.45. Completed METHYLPREDNISOLONE x 2 in ED. Originally started on CEFTRIAXONE/AZITHROMYCIN. We switched to CEFEPIME and Metro due to increased oxygen demand. Continued on high flow, down from 75% to 55% FiO2. WBC 12. Continued afebrile. No growth on culture. COVID and RSV PCR negative. Cocci IgM negative. MRSA swab negative. VANCOMYCIN discontinued. Continue off high flow, will give LASIX one-time and follow-up with echo to rule out cardiac causes of hypoxemia. Echocardiogram showed normal ejection fraction and no PFO. ? Continue CEFEPIME 2 mg q.8h. (03/25 to [present]) ? Continue METRONIDAZOLE 500 mg q.8h. (03/25 to [present]) ? Continue DuoNebs ? Continue SODIUM CHLORIDE Nebs with RT ? Given LASIX 40 mg p.o. x 1 ? Pending Legionella, cocci IgG Vasovagal syncope Endorsed 2 episodes of syncope in settings of pneumonia. Most likely related to dehydration. No concerning symptoms for cardiac causes such as chest pain, palpitations, abnormal EKG findings. Likely stroke, no focal deficit. Currently asymptomatic. Less likely metabolic abnormalities based on CMP. ? Continue to monitor ? Physical therapy IDDM type I Well-controlled, A1c 5.5 from October 2023. GLUCOSE 253 this AM. Insulin adjusted as below. ? Continue glargine 20 units HS ? Continue LISPRO 3 unit TID ? INSULIN sliding scale ? Accu-Cheks LETICIA (resolved) Likely prerenal 2/2 dehydration. Admission CR 1.4, resolved with resuscitation. ? Renally dose meds, avoid overdiuresis and NEPHROTOXINS Hyperkalemia (resolved) Admission potassium 5.7 in setting of LETICIA versus dehydration. No EKG changes. S/p KAYEXALATE 15 mg x 1 ? Daily CMP Iron deficiency anemia Normocytic anemia with Hgb 10.9. No signs of active bleeding. Low iron storage labs. B12 WNL. ? Recommended starting FERROUS SULFATE outpatient once infection resolved ? Pending folate level Hypertension Currently normotensive ? Continue home AMLODIPINE 5 mg daily ? Holding home LISINOPRIL 2/2 LETICIA Hypothyroidism ? Continued home LEVOTHYROXINE 100 mcg AC BR Generalized anxiety disorder/Depression ? Continued home ABILIFY, ESCITALOPRAM, BUSPAR Health maintenance Diet: CHO consistent GI prophylaxis: Not indicated DVT prophylaxis: HEPARIN subcu Antibiotics: CEFTRIAXONE, AZITHROMYCIN CODE STATUS: Full code Disposition: Pending improvement in oxygen need Patient case was discussed with attending, Dr. Taz Tipton DO and senior resident Dr. Macdonald. Che Ahmadi DO PGYI Attending Provider Attestation/Addendum I have discussed and was present for the essential components of the history, physical examination, diagnosis, and treatment plan with the resident. I agree with the patient's care as documented by the resident and amended herein by me. Jono Tipton DO. Patient seen and evaluated in the a.m., vital signs stable, patient afebrile overnight. Patient states he feels very well, SpO2 92% now on 6 L of O2. Significant labs include a WBC of 11.7, stable hemoglobin of 10.3, bicarb 29. Once we get the patient's O2 below 4 L, he can go home, he was already issued a home O2 by his primary physician for previous bout of pneumonia, we did get an echo today which was unremarkable normal LV size and function, EF 60-65%. Will continue to ambulate the patient and possibly discharge this afternoon or tomorrow morning pending further improvement. Although this document has been carefully reviewed, there may still be some phonetic and other typographical errors. These errors are purely grammatical due to imperfections in the software program and should not be construed in any way to compromise the substance of the patient's medical care during this visit.
[2024-03-28] MEDS: INSULIN GLARGINE (Lantus) 5 UNIT/0.05 ML (PER 5 UNITS) 20 UNIT SC (21:11)
[2024-03-29] VITALS (7 sets, daily range): BP systolic 123–145; BP diastolic 60–71; PULSE 73–91; RESP 12–20; TEMP 36–36.4; O2SAT 92–99; BMI 26.6
[2024-03-29] MEDS: ALBUTEROL/IPRATROPIUM (Duoneb) RT SOL 3 ML NEBU INH ×2 (00:14→07:10)
[2024-03-29] MEDS: LEVOTHYROXINE SODIUM 100 MCG TABLET PO (05:32)
[2024-03-29] MEDS: metroNIDAZOLE 250 MG TABLET 500 MG PO (05:32)
[2024-03-29] MEDS: BusPIRone HCL 5 MG TABLET 15 MG PO (05:32)
[2024-03-29] MEDS: CEFEPIME INJ 2 GM in SODIUM CHLORIDE 0.9% (P) 50 ML IV (05:32)
[2024-03-29 05:50] LABS: Basophils % (Auto) 0 % (0-2.5); Eosinophils # (Auto) 0.3 Thou/mm3 (0.0-0.5); Eosinophils % (Auto) 3 % (0-10); Hematocrit 27.8 % (41.0-53.0); Hemoglobin 9.4 g/dL (13.5-16.0); Immature Granulocytes % (Auto) 1 % (0-0); Immature Granulocytes Auto 0.11 Thou/mm3 (0.00-0.00); Lymphocytes # (Auto) 1.6 Thou/mm3 (1.0-4.8); Lymphocytes % (Auto) 15 % (10-50); Mean Corpuscular HGB Conc 33.8 g/dl (31.0-37.0); Mean Corpuscular Hemoglobin 33.5 pg (25.0-35.0); Mean Corpuscular Volume 99 fL (80-100); Monocytes # (Auto) 0.8 Thou/mm3 (0.0-0.8); Monocytes % (Auto) 8 % (0-12); Neutrophils # (Auto) 7.5 Thou/mm3 (1.8-7.7); Neutrophils % (Auto) 73 % (37-80); Nucleated Red Blood Cell % 0 /100 WBC (0); Platelet Count 316 Thou/mm3 (140-440); RDW Standard Deviation 49.7 fL (35.1-43.9); Red Blood Count 2.81 Miln/mm3 (4.50-5.90); White Blood Count 10.3 Thou/mm3 (3.8-10.6)
[2024-03-29 06:22] LABS: Alanine Aminotransferase 52 U/L (10-49); Albumin, Serum 4.2 gm/dL (3.4-4.8); Albumin/Globulin Ratio 2.1 (1.2-2.2); Alkaline Phosphatase 79 U/L (46-116); Anion Gap 6 (7-16); Aspartate Amino Transferase 70 U/L (0-34); BUN/Creatinine Ratio 16 Ratio (12-20); Bilirubin,Total 1.8 mg/dL (0.3-1.2); Blood Urea Nitrogen 18 mg/dL (9-23); Calcium 8.7 mg/dL (8.3-10.6); Calcium (Corrected) 8.7 mg/dL (8.5-10.1); Carbon Dioxide 27.6 mMol/L (20.0-31.0); Chloride 96 mMol/L (98-107); Creatinine (Component) 1.1 mg/dL (0.6-1.3); Estimated Creatinine Clearance 63.6 mL/min (>60); Glucose 307 mg/dL (74-106); Osmolality,Calculated 274 (275-295); Phosphorous 2.9 mg/dL (2.4-5.1); Potassium 4.8 mMol/L (3.4-5.1); Sodium 130 mMol/L (136-145); Total Protein 6.2 gm/dL (5.7-8.2); eGFR > 60 See Note
[2024-03-29 06:38] LABS: Folate, RBC* 789 ng/mL RBC (>280)
[2024-03-29] MEDS: INSULIN LISPRO (AdmeLOG) 1 UNIT/0.01 ML UNIT 3 UNIT SC (07:42)
[2024-03-29] MEDS: INSULIN LISPRO (AdmeLOG) 1 UNIT/0.01 ML UNIT SC ×2 (07:42→11:16)
[2024-03-29] MEDS: HEPARIN SOD INJ 5000 UNIT/ML VIAL SC (08:40)
[2024-03-29] MEDS: DAPSONE 25 MG TABLET PO (08:41)
[2024-03-29] MEDS: ARIPiprazole 5 MG TABLET 15 MG PO (08:41)
[2024-03-29] MEDS: SENNA TABLET 1 TAB PO (08:42)
[2024-03-29] MEDS: amLODIPine BESYLATE 5 MG TABLET PO (08:42)
[2024-03-29] MEDS: ESCITALOPRAM OXALATE 10 MG TABLET 20 MG PO (08:42)
[2024-03-29] MEDS: guaiFENesin/P-EPHED TABLET 2 TAB PO (08:43)
--- NOTE | 2024-03-29 09:04 | XR_ITS ---
Examination: Abdomen sonogram, Limited Date and time of exam: March 29, 2024 0929 hours INDICATIONS: Elevated liver function tests on laboratory examination performed 2 days ago. Technique: Real-time greer scale transabdominal sonographic images of the upper abdomen obtained. Findings: No gallstones Gallbladder wall 0.44 cm no edema Normal common bile duct 0.3 cm Pancreatic head 2.8 cm Liver 15.3 cm fatty infiltration no focal liver lesions Normal hepatopedal portal venous flow Patent IVC IMPRESSION: Negative for cholelithiasis Borderline thickening gallbladder wall 0.44 cm no edema, clinical correlation advised, consider HIDA scan or MRCP follow-up as clinically warranted
--- NOTE | 2024-03-29 10:18 | PC.SS ---
Follow up note: SS met with patient and at bedside. They had questions regarding their new insurance. SS faxed over copies of the new insurance card to patient registration. Advised to contact them later today to verify they received information. Patient states he's down to 2L of 02. They are eager to discharge home today. states he already has 02 at home. D/c pending.
[2024-03-29] MEDS: INSULIN LISPRO (AdmeLOG) 1 UNIT/0.01 ML UNIT 9 UNIT SC (11:16)
--- NOTE | 2024-03-29 16:00 | PD.RESDS ---
Planned Discharge Date 03/29/24 DS: Providers Provider Date of admission: 03/23/24 22:50 Primary care physician: Jorge Luis Mortensen MD Admitting Provider: Aaron Solomon MD Attending Provider on Admission: Taz Tipton DO Consults: 03/24/24 13:23 Referral Physical Therapy Routine Comment: Physician Instructions: Attending Provider on DC: Dr. Taz Tipton DO Discharging Provider: Dr. Taz Tipton DO DS: Diagnosis Problem List Completed Was Problem List Reviewed/Reconciled?: Yes Hospital Course Hospital Course Hospital course: This is a pleasant 59-year-old male PMHx of T1DM uncontrolled with A1c 5.5, HTN, HLD, BRIGETTE, MDD, presenting with shortness of breath, admitted for commune acquired pneumonia after failing outpatient ANTIBIOTIC therapy. Workup including COVID, RSV, MRSA, cocci IgM, influenza were all negative. Pancultures showed no growth throughout hospital course. Patient continued on ANTIBIOTICS and respiratory support. Initially required high flow which was titrated down to 4 L NC. He was prescribed home oxygen by his PCP from his recent pneumonia treatment. He'll continue to use home oxygen as needed at home. Patient stable at the time of discharge. In addition, patient had found to have mild iron deficiency anemia. Hemoglobin remained stable without signs of bleeding. Started iron supplements. PATIENT INSTRUCTIONS: Please follow-up with your PCP within 1 week of discharge. Please continue with all your medicines as prescribed Recommended to return back to emergency department if your symptoms persist or does not improve. Continue INSULIN regimen as prescribed by your PCP. Continue taking medications as prescribed below: ? FERROUS SULFATE 325 mg every other day (NEW) ? AMLODIPINE 5 mg daily ? LISINOPRIL 20 mg daily ? LOVASTATIN 40 mg daily ? ILAPRAZOLE 5 mg daily ? BENZONATATE 200 mg 3 times daily as needed for cough ? BUSPIRONE 15 mg daily ? CETIRIZINE 10 mg daily ? DAPSONE 25 mg daily ? ESCITALOPRAM OXALATE 20 mg daily ? LEVOTHYROXINE 100 mg daily ? MONTELUKAST 10 mg daily ? PROMETHAZINE history of every 6 hours as needed for cough ADMISSION DIAGNOSES: [address] [address] Progress Note Author: Che Ahmadi MD Patient Name: KATALINA PHILLIP : 1965 Documentation for date of: 03/28/24 Subjective Subjective Interval history: No acute overnight events. Downgraded to 6 L nasal cannula. Feeling better, improved cough, improved shortness of breath. Denies fever, chills, headaches, chest pain, cough or shortness of breath, GI or urinary symptoms. Exam Vital Signs Temp Pulse Resp BP Pulse Ox O2 Del Method O2 Flow Rate 96.8 F 87 20 150/72 H 92 L Nasal Cannula 6 03/28/24 12:00 03/28/24 12:11 03/28/24 12:11 03/28/24 12:00 03/28/24 12:11 03/28/24 12:00 03/28/24 12:11 FiO2 50 03/28/24 06:43 Narrative Exam GENERAL: Normal appearing middle-aged male, no apparent distress, on 30 L high flow 70% FiO2 HEENT: NCAT.?CABRERA. Oral mucosa is moist. Patent Nares NECK: Supple, nontender, no thyromegaly, no meningismus, no JVD, no step offs CARDIOVASCULAR: RRR, no m/g/r LUNGS: Improved bilateral wheezing, slight rhonchi bibasilarly. No rales. Symmetrical chest rise. ABDOMEN: Soft, flat, nontender. No guarding/rebound tenderness/masses. +BS EXTREMITIES: Nontender.? No edema/cyanosis.?Moves all 4 extremities well, with full ROM and good CSM. SKIN: Warm and dry, no jaundice/rashes. MSK: No lumbar or midline, no CVA, no paraspinal muscle spasm or tenderness. NEURO: Cogwheel rigidity of bilateral upper extremity noted. No other focal neurologic deficits. PSYCHIATRIC: Normal mood and affect, cooperative, no SI or HI or hallucinations. Objective Labs 03/28/24 04:57 03/28/24 04:57 Labs: Laboratory Results - last 24 hr 03/28/24 04:57 WBC 11.7 H RBC 2.99 L Hgb 10.3 L Hct 29.9 L MCV 100 MCH 34.4 MCHC 34.4 RDW Std Deviation 49.6 H Plt Count 332 Neut % (Auto) 77 Lymph % (Auto) 13 Peach % (Auto) 6 Eos % (Auto) 3 Baso % (Auto) 0 Neut # (Auto) 9.0 H Lymph # (Auto) 1.6 Peach # (Auto) 0.7 Eos # (Auto) 0.3 Baso # (Auto) 0.0 Immature Gran # (Auto) 0.08 H Absolute Nucleated RBC 0.00 Immature Gran % 1 H Nucleated RBC % 0 Sodium 132 L Potassium 4.3 Chloride 97 L Carbon Dioxide 29.2 Anion Gap 6 L BUN 19 Creatinine 1.1 Estim Creat Clear Calc 63.6 eGFR > 60 BUN/Creatinine Ratio 17 Glucose 261 H Calculated Osmolality 275 Calcium 9.0 Corrected Calcium 9.0 Phosphorus 3.4 Magnesium 2.0 Total Bilirubin 1.8 H D AST 36 H ALT 29 Alkaline Phosphatase 85 Total Protein 6.4 Albumin 4.1 Globulin 2.3 Albumin/Globulin Ratio 1.8 ABG Interpretation ABG results: 03/23/24 03/27/24 20:16 09:05 ABG pH 7.45 ABG pCO2 35 ABG pO2 52 L* ABG HCO3 24 ABG O2 Saturation 85 L ABG Base Excess 1 VBG pH 7.45 VBG pCO2 41 VBG pO2 39 VBG Base Excess 4 H Quality Measures Quality Measures sepsis Current suspected stage: ruled out Possible source: unknown Blood cultures ordered: yes Antibiotic ordered: Yes Assessment & Plan Assessment Current Active Medications: Generic Name Dose Route Start Last Admin Trade Name Freq PRN Reason Stop Dose Admin Acetaminophen 650 mg 03/23/24 22:50 Acetaminophen 325 Mg Tablet PO 04/22/24 22:49 Q6H PRN Pain 1-3 and/or Fever >100.1 Albuterol/Ipratropium 3 ml 03/25/24 19:00 03/28/24 12:11 Albuterol/Ipratropium (Duoneb) Rt Anabel 3 Ml Nebu INH 04/24/24 18:59 3 ml Q6HRRT GUNJAN Administration Amlodipine Besylate 5 mg 03/25/24 09:00 03/28/24 08:47 Amlodipine Besylate 5 Mg Tablet PO 04/24/24 08:59 5 mg QDAY GUNJAN Administration Aripiprazole 15 mg 03/24/24 09:00 03/28/24 08:48 Aripiprazole 5 Mg Tablet PO 04/23/24 08:59 15 mg QDAY GUNJAN Administration Buspirone HCl 15 mg 03/24/24 06:00 03/28/24 14:54 Buspirone Hcl 5 Mg Tablet PO 04/23/24 05:59 15 mg TID GUNJAN Administration Dapsone 25 Mg Tablet 0 ea 03/24/24 12:00 03/28/24 08:49 PO 04/23/24 11:59 50 tablet QDAY GUNJAN Administration Dextrose 25 ml 03/23/24 22:54 Dextrose 50%-Water Inj 50 Ml Syringe IV 04/22/24 22:53 Q15MIN PRN BG 50-70 responsive npo pt Dextrose 50 ml 03/23/24 22:54 Dextrose 50%-Water Inj 50 Ml Syringe IV 04/22/24 22:53 Q15MIN PRN BG <50 OR BG <70 & pt unresponsive Escitalopram Oxalate 20 mg 03/24/24 09:00 03/28/24 08:48 Escitalopram Oxalate 10 Mg Tablet PO 04/23/24 08:59 20 mg QDAY GUNJAN Administration Ferrous Sulfate 325 mg 03/28/24 12:30 03/28/24 12:43 Ferrous Sulf 325 Mg Tablet PO 04/27/24 12:29 325 mg QOD GUNJAN Administration Glucagon 1 mg 03/23/24 22:54 Glucagon Inj 1 Mg Vial IM Q15MIN PRN BG <70, and no IV access Guaifenesin 2 tab 03/27/24 21:00 03/28/24 08:46 Guaifenesin/P-Ephed Tablet PO 04/26/24 20:59 2 tab BID GUNJAN Administration Heparin Sodium (Porcine) 5,000 unit 03/24/24 09:00 03/28/24 08:46 Heparin Sod Inj 5000 Unit/Ml Vial SC 04/07/24 08:59 5,000 unit Q12HR GUNJAN Administration Hydralazine HCl 10 mg 03/23/24 22:57 Hydralazine Inj 20 Mg/Ml Vial IV 04/22/24 22:56 Q6HR PRN Systolic >180 and HR <70 Cefepime HCl 2 gm/ Sodium 50 mls @ 100 mls/hr 03/25/24 08:21 03/28/24 14:54 Chloride IV 04/01/24 08:20 100 mls/hr Q8HR GUNJAN Administration Insulin Glargine 20 unit 03/27/24 21:00 03/27/24 20:15 Insulin Glargine (Lantus) 5 Unit/0.05 Ml (Per 5 Units) SC 04/26/24 20:59 20 unit HS GUNJAN Administration Insulin Human Lispro 0 unit 03/25/24 11:30 03/28/24 11:32 Insulin Lispro (Admelog) 1 Unit/0.01 Ml Unit SC 04/24/24 11:29 6 unit AC GUNJAN Administration Protocol Insulin Human Lispro 3 unit 03/27/24 12:00 03/28/24 11:32 Insulin Lispro (Admelog) 1 Unit/0.01 Ml Unit SC 04/26/24 11:59 3 unit TIDWM GUNJAN Administration Labetalol HCl 10 mg 03/23/24 22:57 Labetalol Inj 5 Mg/Ml Vial 20 Ml IVP 04/22/24 22:56 Q6HR PRN Systolic >180 and HR >70 Levalbuterol HCl 0.63 mg 03/23/24 22:55 03/24/24 07:23 Levalbuterol Rt 0.63 Mg/3 Ml Nebu INH 04/22/24 22:54 0.63 mg Q8HR PRN Administration WHEEZING Levothyroxine Sodium 100 mcg 03/24/24 06:00 03/28/24 05:30 Levothyroxine Sodium 100 Mcg Tablet PO 04/23/24 05:59 100 mcg ACBR GUNJAN Administration Lisinopril 5 mg 03/24/24 09:00 03/24/24 09:25 Lisinopril 2.5 Mg Tablet PO 04/23/24 08:59 5 mg QDAY GUNJAN Administration Metronidazole 500 mg 03/25/24 08:30 03/28/24 14:54 Metronidazole 250 Mg Tablet PO 04/01/24 08:29 500 mg Q8HR GUNJAN Administration Ondansetron HCl 4 mg 03/23/24 22:50 Ondansetron Inj 2 Mg/Ml Inj 2 Ml IV 04/22/24 22:49 Q6H PRN NAUSEA OR VOMITING Protocol Sennosides 1 tab 03/24/24 09:00 03/28/24 08:48 Senna Tablet PO 04/23/24 08:59 1 tab QDAY GUNJAN Administration Protocol Plan In summary: 59-year-old male with PMHx of T1DM, HTN, HLD, BRIGETTE/MDD, admitted for acute hypoxic respiratory failure in settings of pneumonia. Continued on ANTIBIOTICS and breathing treatment. Continued on CEFEPIME and FLAGYL. Afebrile, WBC 11.7. Echocardiogram normal ejection fraction no PFO. Symptoms improved after 1 dose of LASIX. Wean off oxygen, down from high flow to 6 L NC, satting mid 90s, no SOB. Will likely discharge tomorrow 1/3 if afebrile to downgrade to 4 L NC. Patient stated has home oxygen supplement prescribed by PCP recently. Acute hypoxic respiratory failure 2/2 [facility] pneumonia Lactic acidosis (resolved) Vasovagal syncope IDDM type I LETICIA (resolved) Hyperkalemia (resolved) Iron deficiency anemia Hypertension Hypothyroidism Generalized anxiety disorder/Depression Patient case was discussed with attending, Dr. Taz Tipton DO and senior residents Dr. Farias and Dr. Carlson. Che Ahmadi DO PGYI Senior Resident Attestation: I discussed with and supervised the logistics intern physician involved in the care of this patient. I personally saw and examined the patient and discussed the assessment and plan with the entire medicine team, including my attending. I agree with the discharge plan as documented above. Dionisio Carlson MD PGY2 Internal Medicine Time Spent with Patient Time attestation: Total time spent providing and/or coordinating discharge services: Greater than 35 minutes. Exam Vital Signs Temp Pulse Resp BP Pulse Ox O2 Del Method O2 Flow Rate 96.9 F 87 15 145/71 H 92 L Nasal Cannula 2 03/29/24 12:00 03/29/24 12:00 03/29/24 12:00 03/29/24 12:00 03/29/24 12:00 03/29/24 12:03/29/24 12:00 FiO2 50 03/29/24 00:00 Narrative Exam GENERAL: Normal appearing middle-aged male, no apparent distress, on 30 L high flow 70% FiO2 HEENT: NCAT.?CABRERA. Oral mucosa is moist. Patent Nares NECK: Supple, nontender, no thyromegaly, no meningismus, no JVD, no step offs CARDIOVASCULAR: RRR, no m/g/r LUNGS: No bilateral wheezing, no rhonchi bibasilarly. No rales. Symmetrical chest rise. ABDOMEN: Soft, flat, nontender. No guarding/rebound tenderness/masses. +BS EXTREMITIES: Nontender.? No edema/cyanosis.?Moves all 4 extremities well, with full ROM and good CSM. SKIN: Warm and dry, no jaundice/rashes. MSK: No lumbar or midline, no CVA, no paraspinal muscle spasm or tenderness. NEURO: Cogwheel rigidity of bilateral upper extremity noted. No other focal neurologic deficits. PSYCHIATRIC: Normal mood and affect, cooperative, no SI or HI or hallucinations. Discharge Plan Plan Patient Disposition: HOME (Self Care) Care Plan Goals: Please follow-up with your PCP within 1 week of discharge. Please continue with all your medicines as prescribed Recommended to return back to emergency department if your symptoms persist or does not improve. Continue INSULIN regimen as prescribed by your PCP. Continue taking medications as prescribed below: ? FERROUS SULFATE 325 mg every other day (NEW) ? AMLODIPINE 5 mg daily ? LISINOPRIL 20 mg daily ? LOVASTATIN 40 mg daily ? ILAPRAZOLE 5 mg daily ? BENZONATATE 200 mg 3 times daily as needed for cough ? BUSPIRONE 15 mg daily ? CETIRIZINE 10 mg daily ? DAPSONE 25 mg daily ? ESCITALOPRAM OXALATE 20 mg daily ? LEVOTHYROXINE 100 mg daily ? MONTELUKAST 10 mg daily ? PROMETHAZINE history of every 6 hours as needed for cough Prescriptions/Referrals Prescriptions/Med Rec: New ferrous sulfate 325 mg (65 mg iron) Tablet,Delayed Release (Dr/Ec) 325 mg PO QOD 30 Days Qty: 15 2RF Continued Humalog U-100 Insulin 100 U/ML cartridge 64 unit subcut 2XD Qty: 0 lisinopril 20 MG tablet 20 mg PO QDAY Qty: 0 lovastatin 40 MG tablet 40 mg PO HS Qty: 0 promethazine-DM 6.25-15 mg/5 mL syrup 5 ml PO Q6H PRN (Reason: Cough) Patient Comments: take 5 MILLILITER by mouth every 6 hours if needed for cough benzonatate 200 mg capsule 200 mg PO TID PRN (Reason: Cough) Patient Comments: take 1 capsule by mouth three times a day if needed for cough montelukast 10 mg tablet 10 mg PO DAILY cetirizine 10 mg Tablet 10 mg PO QDAY amlodipine 5 mg tablet 5 mg PO QDAY levothyroxine 100 mcg tablet 100 mcg PO QDAY Patient Comments: take 1 tablet by mouth once daily dapsone 25 mg tablet 25 mg PO QDAY Patient Comments: take 2 tablets by mouth once daily Rx Instructions: 25mg 2 tabs daily buspirone 15 mg tablet 15 mg PO QDAY escitalopram oxalate 10 mg tablet 20 mg PO QDAY Patient Comments: take 1 tablet by mouth once daily aripiprazole 5 mg tablet 5 mg PO QDAY insulin aspart U-100 [Novolog FlexPen U-100 Insulin] 100 unit/mL (3 mL) insulin pen SUBCUT Referrals: Festus (PCP),MD Jorge Luis [Primary Care Provider] - Patient/Caregiver Discharge Instructions Other Discharge Activity Instructions:: Follow-up with PCP within 1-2 weeks of discharge. Discussed starting iron sulfate every other day for iron deficiency anemia. Return to Emergency Room if symptoms persist, worsen, or new symptoms develop. Continue taking medications as prescribed below: Education Materials: High Blood Sugar (Hyperglycemia), Glucose Check Steps, ED Diabetes with High Blood Sugar Print Language: [place] Citizen Stand Alone Forms: [employer] Award Info., Patient Portal Info Letter Discharge Order Discharge Orders: Discharge (Routine); Ordered 03/29/24 Ordered By: Che Ahmadi Quality Discharge Quality Measures VTE prophylaxis MD Attestestation MD Attestation I have discussed and was present for the essential components of the discharge history, physical examination, diagnosis, and discharge treatment plan with the resident. I agree with the patient's discharge care as documented by the resident and amended herein by me. Jono Tipton DO. The patient understood all discharge instructions, all questions were answered satisfactorily. The patient was instructed to return to the Emergency Department is symptoms worsened or persisted. Patient was stable, afebrile, tolerating p.o. intake and ambulatory at time of discharge with home oxygen. Completed antibiotic course inpatient, patient on 2 L, SpO2 92% on day of discharge home. Although this document has been carefully reviewed, there may still be some phonetic and other typographical errors. These errors are purely grammatical due to imperfections in the software program and should not be construed in any way to compromise the substance of the patient's medical care during this visit.
[2024-04-01 06:45] LABS: Legionella Ag, EIA, Urine* NOT DETECTED
== END 2024-03-29 12:45 | disposition home or self-care (01) | DRG 189 ==
LOC: SERX 22:20 → SERHOLD 23:05 → S2NX 23:56
PROVIDERS: Physician Assistant; Admitting Provider Internal Medicine; Emergency Provider Emergency Medicine; PCP Family Medicine; Visit Provider Student in an Organized Health Care Education/Training Program
DX: J96.01 Acute respiratory failure with hypoxia (principal); J18.9 Pneumonia, unspecified organism; N17.9 Acute kidney failure, unspecified; I10 Essential (primary) hypertension; E78.5 Hyperlipidemia, unspecified; F41.1 Generalized anxiety disorder; F32.9 Major depressive disorder, single episode, unspecified; E10.65 Type 1 diabetes mellitus with hyperglycemia; D50.9 Iron deficiency anemia, unspecified; E86.0 Dehydration; E87.5 Hyperkalemia; E03.9 Hypothyroidism, unspecified; Z79.890 Hormone replacement therapy; Z99.81 Dependence on supplemental oxygen; F12.90 Cannabis use, unspecified, uncomplicated; H54.8 Legal blindness, as defined in USA; Z79.4 Long term (current) use of insulin
CPT/HCPCS: 36415; 36600; 71045; 71046; 71275; 76705; 80053; 80061; 81001; 82607; 82728; 82747; 82803; 83540; 83550; 83605; 83735; 83880; 84100; 84145; 84443; 84484; 85025; 85610; 86635; 87040; 87081; 87205; 87400; 87449; 87634; 87635; 87811; 93005; 93306; 94640; 94644; 94664; 94667; 96365; 96366; 96368; 96372; 96375; 96376; 97162; 99291; A4649; A9270; J0456; J0692; J0696; J1643; J1815; J2919; J3370; J3372; J7030; J7040; J7050; Q9967; J1644

== ENCOUNTER → 2024-07-31 | Outpatient (CLI) | payer BC, SELFPAY ==
[2024-07-31 10:00] LABS: Glucose Estimated Average 80 mg/dL (80-131); Hemoglobin A1C 4.4 % Hgb (4.8-6.0)
[2024-07-31 10:14] LABS: Thyroid Stimulating Hormone 8.92 uIU/mL (0.55-4.78)
== END | disposition home or self-care (01) ==
PROVIDERS: PCP Family Medicine; Referring Provider Family Medicine; Visit Provider Family Medicine
DX: E03.9 Hypothyroidism, unspecified (principal); E11.9 Type 2 diabetes mellitus without complications
CPT/HCPCS: 36415; 83036; 84443

== ENCOUNTER → 2024-10-10 | Outpatient (CLI) | payer BC, SELFPAY ==
[2024-10-10 09:51] LABS: Glucose Estimated Average 74 mg/dL (80-131); Hemoglobin A1C 4.2 % Hgb (4.8-6.0)
[2024-10-10 09:59] LABS: Thyroid Stimulating Hormone 6.26 uIU/mL (0.55-4.78)
== END | disposition home or self-care (01) ==
LOC: COPL 08:48
PROVIDERS: PCP Family Medicine; Referring Provider Family Medicine; Visit Provider Family Medicine
DX: E03.9 Hypothyroidism, unspecified (principal); E11.9 Type 2 diabetes mellitus without complications
CPT/HCPCS: 36415; 83036; 84443

== ENCOUNTER → 2025-01-10 | Outpatient (CLI) | payer BC, SELFPAY ==
[2025-01-10 09:49] LABS: Thyroid Stimulating Hormone 64.48 uIU/mL (0.55-4.78)
== END | disposition home or self-care (01) ==
PROVIDERS: PCP Family Medicine; Referring Provider Family Medicine; Visit Provider Family Medicine
DX: E03.9 Hypothyroidism, unspecified (principal)
CPT/HCPCS: 36415; 84443